=== PATIENT | female | born 1985 | race Caucasian/White ===

== ENCOUNTER 2019-09-14 08:30 | Emergency (ER) | payer OTHER | END 2019-09-14 09:06 | disposition home or self-care (01) | LOC: BURERS 08:30 | DX: K04.7 Periapical abscess without sinus (principal); J44.9 Chronic obstructive pulmonary disease, unspecified; I10 Essential (primary) hypertension; E11.9 Type 2 diabetes mellitus without complications; J45.909 Unspecified asthma, uncomplicated; F41.9 Anxiety disorder, unspecified; F31.9 Bipolar disorder, unspecified; F17.210 Nicotine dependence, cigarettes, uncomplicated; Z79.899 Other long term (current) drug therapy; Z79.4 Long term (current) use of insulin | CPT/HCPCS: 99282 ==

== ENCOUNTER 2019-10-08 14:56 | Emergency (ER) | payer OTHER ==
[2019-10-08] MEDS ORDERED: Morphine 4 MG/ML VIAL ONE (15:16)
[2019-10-08] MEDS ORDERED: Lidocaine 2% w/ Epi 1:200K 10 ML VIAL ONE (15:17)
== END 2019-10-08 16:00 | disposition home or self-care (01) ==
LOC: BURERS 14:56
DX: K61.0 Anal abscess (principal); Z79.899 Other long term (current) drug therapy; Z79.4 Long term (current) use of insulin; Z79.891 Long term (current) use of opiate analgesic
CPT/HCPCS: 46050; 96372; J2270

== ENCOUNTER 2019-10-13 18:06 | Emergency (ER) | payer OTHER ==
[2019-10-13] MEDS ORDERED: predniSONE 20 MG TAB ONE (18:28)
== END 2019-10-13 18:45 | disposition home or self-care (01) ==
LOC: BURERS 18:06
DX: J11.1 Influenza due to unidentified influenza virus with other respiratory manifestations (principal); J44.1 Chronic obstructive pulmonary disease with (acute) exacerbation; E11.9 Type 2 diabetes mellitus without complications; I10 Essential (primary) hypertension; F41.9 Anxiety disorder, unspecified; F31.9 Bipolar disorder, unspecified; F17.210 Nicotine dependence, cigarettes, uncomplicated
CPT/HCPCS: 94640; J7512; J7620

== ENCOUNTER 2019-10-16 10:07 | Emergency (ER) | payer OTHER ==
--- NOTE | 2019-10-16 10:47 | RAD ---
EXAM: Single view of the chest HISTORY: Cough and congestion COMPARISON: 07/12/2019 FINDINGS: Single view of the chest shows a normal sized cardiomediastinal silhouette. There is no xochitl dence of consolidation, mass, or pleural effusion. The bones are unremarkable. IMPRESSION: No evidence of acute cardiopulmonary disease
[2019-10-16] MEDS ORDERED: predniSONE 20 MG TAB ONE (11:08)
[2019-10-16 11:14] LABS: Hemoglobin 17.2 g/dL (12.0-16.0); Mean Corpuscular Hemoglobin 32.2 pg (27.0-31.0); Mean Corpuscular Volume 94.9 fL (78.0-98.0); Red Blood Cell (RBC) Count 5.35 mill/uL (4.20-5.40); White Blood Cell (WBC) Count 10.6 thou/uL (4.8-10.8)
[2019-10-16 11:15] LABS: #Basophils 0.1 thou/uL (0.0-0.2); #Eosinphils 0.2 thou/uL (0.0-0.7); #Monocytes 0.8 thou/uL (0.11-0.59); #Neutrophils 6.8 thou/uL (1.40-6.50); %Eosinophils 1.6 % (0.0-10.0); %Lymphocytes 26.6 % (21.0-51.0); %Neutrophils 63.8 % (42.0-75.0); MDiff Complete? YES; Manual Diff?? NO; Mean Corpuscular HGB CONC 33.9 g/dL (32.0-36.0); Platelet Count 192 thou/uL (130-400); RBC Distribution Width 11.7 % (11.5-14.5)
[2019-10-16] MEDS ORDERED: Azithromycin 250 MG TAB ONE (11:16)
[2019-10-16 11:25] LABS: ALT (SGPT) 30 U/L (8-55); AST (SGOT) 23 U/L (5-34); Albumin 3.8 g/dL (3.5-5.0); Alkaline Phosphatase 56 U/L (40-110); Anion Gap 18 mmol/L (10-20); BUN (Urea Nitrogen) 13 mg/dL (7.0-18.7); Bilirubin, Total 0.4 mg/dL (0.2-1.2); Calc. Creatinine Clearance 0 mL/min (70-130); Calcium 9.2 mg/dL (7.8-10.44); Carbon Dioxide 26 mmol/L (22-29); Chloride 96 mmol/L (98-107); Estimated GFR-MDRD Greater than 90; Globulin 3.7 g/dL (2.4-3.5); Glucose 283 mg/dL (70-105); Potassium 4.1 mmol/L (3.5-5.1); Protein, Total 7.5 g/dL (6.0-8.3); Sodium 136 mmol/L (136-145)
[2019-10-17 03:54] LABS: #Lymphocytes 2.8 thou/uL (1.20-3.40)
== END 2019-10-16 11:46 | disposition home or self-care (01) ==
LOC: BURERS 10:07
DX: J44.1 Chronic obstructive pulmonary disease with (acute) exacerbation (principal); J06.9 Acute upper respiratory infection, unspecified; E11.9 Type 2 diabetes mellitus without complications; F41.9 Anxiety disorder, unspecified; F31.9 Bipolar disorder, unspecified; F17.210 Nicotine dependence, cigarettes, uncomplicated; Z79.899 Other long term (current) drug therapy
CPT/HCPCS: 36415; 71045; 80053; 83880; 84484; 85025; 93005; J7512; J7620

== ENCOUNTER 2019-10-18 07:33 | Inpatient (IN) | payer OTHER ==
[2019-10-18] MEDS ORDERED: methylPREDNISolone Sod Succ/PF 125 MG/2 ML VIAL ONE (08:02)
[2019-10-18 08:21] LABS: #Basophils 0.1 thou/uL (0.0-0.2); #Eosinphils 0.1 thou/uL (0.0-0.7); #Lymphocytes 3.4 thou/uL (1.20-3.40); #Monocytes 0.8 thou/uL (0.11-0.59); #Neutrophils 8.5 thou/uL (1.40-6.50); %Basophils 0.9 % (0.0-1.0); %Eosinophils 0.7 % (0.0-10.0); %Lymphocytes 26.4 % (21.0-51.0); %Monocytes 6.5 % (0.0-10.0); %Neutrophils 65.5 % (42.0-75.0); Hemoglobin 17.1 g/dL (12.0-16.0); Mean Corpuscular HGB CONC 33.3 g/dL (32.0-36.0); Mean Corpuscular Hemoglobin 31.8 pg (27.0-31.0); Mean Corpuscular Volume 95.6 fL (78.0-98.0); Mean Platelet Volume 7.9 fL (7.4-10.4); Platelet Count 200 thou/uL (130-400); RBC Distribution Width 12.1 % (11.5-14.5); Red Blood Cell (RBC) Count 5.38 mill/uL (4.20-5.40); White Blood Cell (WBC) Count 12.9 thou/uL (4.8-10.8)
[2019-10-18 08:33] LABS: ALT (SGPT) 31 U/L (8-55); AST (SGOT) 14 U/L (5-34); Albumin 3.9 g/dL (3.5-5.0); Alkaline Phosphatase 52 U/L (40-110); Anion Gap 19 mmol/L (10-20); BUN (Urea Nitrogen) 15 mg/dL (7.0-18.7); Bilirubin, Total 0.5 mg/dL (0.2-1.2); Calc. Creatinine Clearance 0 mL/min (70-130); Calcium 8.9 mg/dL (7.8-10.44); Carbon Dioxide 25 mmol/L (22-29); Chloride 96 mmol/L (98-107); Estimated GFR-MDRD 79; Globulin 3.8 g/dL (2.4-3.5); Glucose 409 mg/dL (70-105); Potassium 3.9 mmol/L (3.5-5.1); Protein, Total 7.7 g/dL (6.0-8.3); Sodium 136 mmol/L (136-145)
[2019-10-18] MEDS ORDERED: Aztreonam 2 GM in Sodium Chloride 0.9% 100 ML IVPB SCH (08:45)
--- NOTE | 2019-10-18 09:13 | RAD ---
PA AND LATERAL CHEST: HISTORY: Cough. Shortness of breath. COMPARISON: 10/16/2019 FINDINGS: The heart size is normal. No focal areas of consolidation, pneumothoraces or pleural effusions are se en. IMPRESSION: No acute process. POS: [facility]
[2019-10-18] MEDS ORDERED: Albuterol Sulfate 1.25 MG/3 ML NEB ONE (10:42)
[2019-10-18 11:28] LABS: Lactic Acid 2.9 mmol/L (0.5-2.2)
[2019-10-18 12:06] VITALS: BMI 41.8
[2019-10-18] MEDS ORDERED: Ventolin HFA Inhaler 60 PUFF INHALER INH PRN (12:51)
[2019-10-18] MEDS ORDERED: Ibuprofen 800 MG TAB PO PRN (12:51)
[2019-10-18] MEDS ORDERED: Ondansetron ODT 4 MG TAB PO PRN (12:51)
[2019-10-18] MEDS ORDERED: Dextrose 50% Abboject 50 ML SYRINGE SLOW IVP PRN (12:53)
[2019-10-18] MEDS ORDERED: Dextrose 5% in Water 1,000 ML IV PRN (12:53)
[2019-10-18] MEDS ORDERED: Paliperidone Palmitate [Invega Sustenna] 234 MG IM SCH (13:15)
[2019-10-18] MEDS: Metoclopramide HCl 10 MG TAB PO SCH ×3 (14:27→20:58)
[2019-10-18] MEDS ORDERED: Nicotine 21 MG PATCH TD SCH (14:30)
[2019-10-18] MEDS: HumaLOG 300 UNITS/3 ML VIAL SC PRN ×2 (18:13→22:47)
[2019-10-18] MEDS: Mometasone/Formoterol 60 PUFF AER INH SCH (18:14)
--- NOTE | 2019-10-18 20:19 | HP ---
CHIEF COMPLAINT: Dyspnea. HISTORY OF PRESENT ILLNESS: A 34-year-old female, chronic smoker with underlying COPD, presented to the [facility] Emergency Department with worsening upper respiratory symptoms including cough and shortness of breath over the last couple weeks. She has been evaluated over this timeframe on more than one occasion in the emergency department and has been prescribed Tessalon Perles, promethazine with codeine cough syrup, prednisone, and azithromycin; however, she has not improved. The patient has been previously prescribed a controller medication of Symbicort, however, she does admit that she did not have this at home. She states she has most recently been seen at the [facility] by Manolo Blood. However, she has moved to this area recently. In the emergency department, the patient was noted to have leukocytosis with chest x-ray concerning for a basilar pneumonia. Her vital signs revealed mild tachypnea, tachycardia, and hypoxia. Secondary to her clinical findings, she is being admitted for a COPD exacerbation with concern for pneumonia and noted hypoxia. In the emergency department, she did receive aztreonam, Levaquin, albuterol nebs, and Solu-Medrol. PAST MEDICAL HISTORY: Include diabetes mellitus, gastroparesis, hypertension, anxiety, depression, bipolar disorder, and COPD. PAST SURGICAL HISTORY: Includes tonsillectomy, colposcopy, and multiple I and D 's for the hidradenitis. FAMILY HISTORY: Congestive heart failure and diabetes in grandmother and breast cancer in paternal grandmother, and melanoma in a paternal uncle. SOCIAL HISTORY: Current smoker between 1 and 2 packs per day for 15+ years, and frequent ETOH. Denies drug use. ALLERGIES: INCLUDE PENICILLIN AND ZOSYN. CURRENT MEDICATIONS: 1. Metoprolol succinate 50 mg daily. 2. Proventil inhaler 2 puffs q.4 hours p.r.n. 3. Ibuprofen 800 mg b.i.d. p.r.n. 4. Aspirin 81 mg daily. 5. Fenofibrate 145 mg at bedtime. 6. Atorvastatin 80 mg at bedtime. 7. Levemir 85 units b.i.d. 8. DuoNeb 3 mL nebs q.i.d. p.r.n. 9. Metoclopramide 10 mg q.i.d. 10. Lisinopril 10 mg daily. 11. Oxcarbazepine 600 mg b.i.d. 12. Invega 234 mg intramuscular once a month. 13. Zofran 8 mg q.6 hours p.r.n. 14. Seroquel 400 mg at bedtime. 15. Zoloft 50 mg daily. REVIEW OF SYSTEMS: GENERAL: The patient complains of fatigue. She denies any complains of sore throat, nasal drainage, or congestion. CARDIOVASCULAR: Denies chest pain. RESPIRATORY: Complains of shortness of breath and cough. GASTROINTESTINAL: Denies abdominal pain, nausea, vomiting, diarrhea, or constipation. GENITOURINARY: Denies dysuria. MUSCULOSKELETAL: Denies joint swelling. DERMATOLOGIC: Denies rash. NEUROLOGIC: Denies headache. LABORATORY DATA: White blood cell count 12.9, hemoglobin 17.1, hematocrit 51.5 , and platelets of 200. Sodium 136, potassium 3.9, BUN 15, creatinine is 0.83 with a GFR of 79, and glucose was 409. Initial lactic acid 5.5, repeat was 2.9; AST 14; and ALT 31. Imaging on 10/18/2019, chest x-ray showed no acute process. PHYSICAL EXAMINATION: VITAL SIGNS: Temperature is 98.6, pulse is 109, respiratory rate is 22, and oxygen 91% on 2 L. GENERAL: The patient is alert and oriented, in no acute distress. She is obese with noted hirsutism. HEAD, EYES, EARS, NOSE, AND THROAT: Normocephalic and atraumatic. Extraocular muscles are intact bilaterally. Pupils are equal, round, and reactive to light. Moist mucous membrane. NECK: Supple without lymphadenopathy. CARDIOVASCULAR: Normal S1 and S2 with tachycardia. No murmurs. RESPIRATORY: Scattered rhonchi and wheezes throughout all lung massey. Nasal cannula is in place. ABDOMEN: Soft and nontender to palpation. No masses. EXTREMITIES: No clubbing, cyanosis, or edema. NEUROLOGIC: Nonfocal with cranial nerves 2 through 12 grossly intact. ASSESSMENT AND PLAN: 1. Chronic obstructive pulmonary disease exacerbation. 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 She will be restarted on her controller medication, which will be Dulera here. She is to have scheduled nebulized treatments and Solu-Medrol IV. She is currently on 2 L of supplemental oxygen. We will resume this and wean as tolerated with a goal to keep sats greater than 92%. 2. Community-acquired pneumonia. The patient will be resumed on Levaquin. Initial CBC did show leukocytosis. We will repeat her CBC, although this is likely to remain elevated secondary to her receiving steroid therapy. 3. Chronic smoker. The patient has been counseled on smoking cessation. We will provide her with a nicotine patch. 4. Insulin-dependent diabetes mellitus. We will resume Levemir dosing with a mealtime sliding scale Humalog with before meals and bedtime glucose checks. 5. Hypertension. Blood pressure is currently stable. We will resume her usual medications for this. 6. Dyslipidemia. Resume statin therapy. 7. Bipolar disorder. We will resume the patient's psych medications. 8. Prophylaxis. We will provide Lovenox for deep venous thrombosis prophylaxis and famotidine for gastrointestinal prophylaxis. CODE STATUS: Full. DISPOSITION: Anticipate minimum 48 hours admission with plan for followup cultures and final discharge home when the patient is able to return back to baseline respiratory status without the need for supplemental oxygen. Job ID: [id number] [facility]
[2019-10-18] MEDS: methylPREDNISolone Sod Succ/PF 125 MG/2 ML VIAL IVP SCH (20:57)
[2019-10-18] MEDS: Lantus 1000 UNITS/10 ML VIAL SC SCH (20:58)
[2019-10-18] MEDS: Famotidine 20 MG TAB PO SCH (20:59)
[2019-10-18] MEDS: OXcarbazepine 150 MG TAB PO SCH (20:59)
[2019-10-18] MEDS ORDERED: OXcarbazepine 300 MG TAB PO SCH (21:00)
[2019-10-18] MEDS ORDERED: Oxcarbazepine [Trileptal] 600 MG PO SCH (21:00)
[2019-10-18] MEDS ORDERED: Atorvastatin Calcium 40 MG TAB PO SCH (21:00)
[2019-10-19] MEDS: methylPREDNISolone Sod Succ/PF 125 MG/2 ML VIAL IVP SCH ×3 (02:13→13:15)
[2019-10-19 04:06] LABS: #Lymphocytes 1.6 thou/uL (1.20-3.40); #Monocytes 0.4 thou/uL (0.11-0.59); %Basophils 0.3 % (0.0-1.0); %Lymphocytes 13.2 % (21.0-51.0); %Neutrophils 83.5 % (42.0-75.0); Mean Corpuscular HGB CONC 34.7 g/dL (32.0-36.0); Mean Corpuscular Hemoglobin 32.4 pg (27.0-31.0); Mean Corpuscular Volume 93.2 fL (78.0-98.0); Platelet Count 191 thou/uL (130-400); RBC Distribution Width 11.9 % (11.5-14.5); Red Blood Cell (RBC) Count 4.94 mill/uL (4.20-5.40); White Blood Cell (WBC) Count 11.9 thou/uL (4.8-10.8)
[2019-10-19 04:21] LABS: ALT (SGPT) 30 U/L (8-55); AST (SGOT) 10 U/L (5-34); Albumin 3.8 g/dL (3.5-5.0); Alkaline Phosphatase 54 U/L (40-110); Anion Gap 16 mmol/L (10-20); BUN (Urea Nitrogen) 15 mg/dL (7.0-18.7); Bilirubin, Total 0.5 mg/dL (0.2-1.2); Calc. Creatinine Clearance 202 mL/min (70-130); Calcium 9.1 mg/dL (7.8-10.44); Carbon Dioxide 26 mmol/L (22-29); Chloride 98 mmol/L (98-107); Estimated GFR-MDRD 85; Globulin 3.6 g/dL (2.4-3.5); Glucose 369 mg/dL (70-105); Potassium 4.5 mmol/L (3.5-5.1); Protein, Total 7.4 g/dL (6.0-8.3); Sodium 135 mmol/L (136-145)
[2019-10-19] MEDS: Mometasone/Formoterol 60 PUFF AER INH SCH (06:19)
[2019-10-19] MEDS: Metoclopramide HCl 10 MG TAB PO SCH ×2 (08:52→13:12)
[2019-10-19] MEDS: Famotidine 20 MG TAB PO SCH (08:52)
[2019-10-19] MEDS: OXcarbazepine 150 MG TAB PO SCH (08:54)
[2019-10-19] MEDS: Lantus 1000 UNITS/10 ML VIAL SC SCH (08:57)
[2019-10-19] MEDS: HumaLOG 300 UNITS/3 ML VIAL SC PRN ×2 (09:00→13:10)
[2019-10-19] MEDS ORDERED: Fenofibrate Nanocrystallized 145 MG TAB PO SCH (09:00)
[2019-10-19] MEDS ORDERED: Enoxaparin Sodium 40 MG/0.4 ML SYRINGE SC SCH (09:00)
[2019-10-19] MEDS ORDERED: Aspirin 81 mg Enteric Coated Tablet PO SCH (09:00)
[2019-10-19] MEDS ORDERED: Nicotine 21 MG PATCH TD SCH (09:00)
[2019-10-19] MEDS ORDERED: Lisinopril 10 MG TAB PO SCH (09:00)
[2019-10-19 13:20] VITALS: BP 124/74; TEMP 98.3
--- NOTE | 2019-10-20 09:51 | DIS ---
DATE OF ADMISSION: 10/18/2019 DATE OF DISCHARGE: 10/19/2019 ADMISSION DIAGNOSES: Chronic obstructive pulmonary disease exacerbation, community-acquired pneumonia, chronic smoker, insulin-dependent diabetes mellitus, hypertension, dyslipidemia, and bipolar disorder. PROCEDURES: 10/18/2019, chest x-ray shows no acute process. HOSPITAL COURSE: This is a 34-year-old female, chronic smoker, with underlying COPD, for which she is not typically oxygen-dependent, presented to the [facility] Emergency Department with dyspnea, tachypnea and URI symptoms, that have not improved with recent prescription of cough medication, oral prednisone and azithromycin. The patient was notably hypoxic and had leukocytosis upon initial workup, prompting her admission for further treatment for COPD exacerbation and concern for pneumonia. The patient received IV Levaquin, scheduled nebulized treatments, and IV Solu-Medrol during her stay. Her respiratory status did improve; however, she had not yet weaned back to room air prior to deciding to leave against medical advice. Of note, the patient had not been using her controller medication Symbicort at home and she left her room to smoke multiple times during her stay. She was counseled on smoking cessation and provided nicotine patches during her stay. DISPOSITION: The patient has left against medical advice and discharged home. DISCHARGE MEDICATIONS: The patient is to resume her usual meds, which include, 1. Metoprolol succinate 50 mg daily. 2. Proventil inhaler 2 puffs q.4 hours p.r.n. 3. Ibuprofen 800 mg b.i.d. p.r.n. 4. Aspirin 81 mg daily. 5. Fenofibrate 145 mg at bedtime. 6. Atorvastatin 80 mg at bedtime. 7. Levemir 85 units b.i.d. 8. DuoNeb 3 mL nebs q.i.d. p.r.n. 9. Metoclopramide 10 mg q.i.d. 10. Lisinopril 10 mg daily. 11. Oxcarbazepine 600 mg b.i.d. 12. Invega 234 mg intramuscular once a month. 13. Zofran 8 mg q.6 hours p.r.n. 14. Seroquel 400 mg at bedtime. 15. Zoloft 50 mg daily. Job ID: [id number] [facility]
--- NOTE | 2019-10-21 05:00 | PQF ---
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 Clinical indicators are provided on the bottom of this form for your review Please check appropriate box(s): [ x ] Acute Respiratory Failure: [ x ] with Hypoxia[ ] with Hypercapnia [ ] Acute On Chronic Respiratory Failure: [ ] with Hypoxia [ ] with Hypercapnia [ ] Acute Respiratory Failure due to: (etiology) [ ] ARDS (Acute Respiratory Distress Syndrome) [ ] Chronic Respiratory Failure only [ ] with Hypoxia [ ] with Hypercapnia [ ] Hypoxia [ ] Other diagnosis [ ] Unable to determine In addition, please specify: Present on Admission (POA): [x ] Yes [ ] No [ ] Unable to determine For continuity of documentation, please document condition throughout progress notes and discharge summary. Thank You. CLINICAL INDICATORS - SIGNS / SYMPTOMS / LABS O2 saturation 86% on Room Air - Documented in ED report pg#[id number] Respiration Rate 22on 10/18 - Documented in Vital Signs Worsening Cough, SOB over the last couple of weeks - Documented in H&P on 10/18 by RICKEY SHAVER Hypoxia - Documented in H&P on 10/18 by RICKEY SHAVER RISK FACTORS COPD Exacerbation - Documented in H&P on 10/18 by RICKEY SHAVER Chronic CHF - Documented in H&P on 10/18 by RICKEY SHAVER Chronic smoker - Documented in H&P on 10/18 by RICKEY SHAVER Community acquired Pneumonia - Documented in H&P on 10/18 by RICKEY SHAVER TREATMENTS: O2 delivery Nasal Cannula - Documented in Vital Signs Received aztreonam albuterol nebs, Solu-Medrol in ED - Documented in H&P on by RICKEY SHAVER [employer] Relief Operator [employer] Winform Viewer (This form is maintained as a part of the permanent medical record) 2014 [employer]. All Rights Reserved [email or web address] [not provided] [email or web address]
== END 2019-10-19 15:50 | disposition left against medical advice (07) | DRG 193 ==
LOC: BURERS 07:33 → BURMED 08:42
PROVIDERS: ADMIT Family Medicine; ATTEND Family Medicine
DX: J18.9 Pneumonia, unspecified organism (principal); J96.01 Acute respiratory failure with hypoxia; J44.1 Chronic obstructive pulmonary disease with (acute) exacerbation; J44.0 Chronic obstructive pulmonary disease with (acute) lower respiratory infection; F31.9 Bipolar disorder, unspecified; F41.9 Anxiety disorder, unspecified; I10 Essential (primary) hypertension; Z90.89 Acquired absence of other organs; F17.210 Nicotine dependence, cigarettes, uncomplicated; Z79.82 Long term (current) use of aspirin; Z79.4 Long term (current) use of insulin; E78.5 Hyperlipidemia, unspecified; D72.829 Elevated white blood cell count, unspecified; E11.43 Type 2 diabetes mellitus with diabetic autonomic (poly)neuropathy; K31.84 Gastroparesis
CPT/HCPCS: 36415; 36416; 71046; 80053; 83605; 85025; 85379; 87040; 87804; 93005; 94640; 96365; 96366; 96375; J1650; J1815; J1956; J2930; J3490; J7620

== ENCOUNTER 2019-11-07 16:21 | Emergency (ER) | payer OTHER ==
[2019-11-07] MEDS ORDERED: Promethazine HCl 25 MG/ML VIAL ONE (16:44)
[2019-11-07] MEDS ORDERED: Metoclopramide HCl 10 MG/2 ML VIAL ONE (16:44)
[2019-11-07 16:54] LABS: #Basophils 0.1 thou/uL (0.0-0.2); #Eosinphils 0.1 thou/uL (0.0-0.7); #Lymphocytes 2.1 thou/uL (1.20-3.40); #Monocytes 0.5 thou/uL (0.11-0.59); #Neutrophils 9.1 thou/uL (1.40-6.50); %Basophils 0.8 % (0.0-1.0); %Eosinophils 0.7 % (0.0-10.0); %Lymphocytes 17.5 % (21.0-51.0); Hemoglobin 18.5 g/dL (12.0-16.0); Mean Corpuscular HGB CONC 33.9 g/dL (32.0-36.0); Mean Corpuscular Hemoglobin 32.1 pg (27.0-31.0); Mean Corpuscular Volume 94.6 fL (78.0-98.0); Mean Platelet Volume 7.6 fL (7.4-10.4); Platelet Count 220 thou/uL (130-400); RBC Distribution Width 12.3 % (11.5-14.5); Red Blood Cell (RBC) Count 5.78 mill/uL (4.20-5.40); White Blood Cell (WBC) Count 11.8 thou/uL (4.8-10.8)
[2019-11-07 17:00] LABS: BHCG - Serum Negative (NEGATIVE); Pregs Control Background? CLEAR/WHITE (CLR/WHITE); Pregs Control Bar Appear? YES (CONTROL BAR)
[2019-11-07 17:11] LABS: ALT (SGPT) 48 U/L (8-55); AST (SGOT) 25 U/L (5-34); Albumin 4.1 g/dL (3.5-5.0); Alkaline Phosphatase 57 U/L (40-110); Anion Gap 19 mmol/L (10-20); BUN (Urea Nitrogen) 11 mg/dL (7.0-18.7); Bilirubin, Total 0.8 mg/dL (0.2-1.2); Calc. Creatinine Clearance 0 mL/min (70-130); Calcium 9.7 mg/dL (7.8-10.44); Carbon Dioxide 29 mmol/L (22-29); Chloride 95 mmol/L (98-107); Estimated GFR-MDRD 74; Globulin 3.6 g/dL (2.4-3.5); Glucose 355 mg/dL (70-105); Lipase 28 U/L (8-78); Potassium 3.9 mmol/L (3.5-5.1); Protein, Total 7.7 g/dL (6.0-8.3); Sodium 139 mmol/L (136-145)
== END 2019-11-07 17:47 | disposition home or self-care (01) ==
LOC: BURERS 16:21
DX: E11.43 Type 2 diabetes mellitus with diabetic autonomic (poly)neuropathy (principal); K31.84 Gastroparesis; E11.65 Type 2 diabetes mellitus with hyperglycemia; J44.9 Chronic obstructive pulmonary disease, unspecified; E66.01 Morbid (severe) obesity due to excess calories; I10 Essential (primary) hypertension; F41.9 Anxiety disorder, unspecified; F31.9 Bipolar disorder, unspecified; F17.210 Nicotine dependence, cigarettes, uncomplicated
CPT/HCPCS: 80053; 83690; 84703; 85025; 96374; 96375; J2550; J2765

== ENCOUNTER 2019-11-08 11:29 | Emergency (ER) | payer OTHER ==
[2019-11-08] MEDS ORDERED: Promethazine HCl 25 MG/ML VIAL ONE (12:21)
[2019-11-08] MEDS ORDERED: Pantoprazole 40 MG VIAL ONE (12:21)
[2019-11-08 12:31] LABS: Anion Gap 17 mmol/L (10-20); BUN (Urea Nitrogen) 11 mg/dL (7.0-18.7); Calc. Creatinine Clearance 0 mL/min (70-130); Calcium 9.5 mg/dL (7.8-10.44); Carbon Dioxide 32 mmol/L (22-29); Chloride 95 mmol/L (98-107); Estimated GFR-MDRD 81; Glucose 373 mg/dL (70-105); Potassium 3.5 mmol/L (3.5-5.1); Sodium 140 mmol/L (136-145)
== END 2019-11-08 13:00 | disposition home or self-care (01) ==
LOC: BURERS 11:29
DX: E11.43 Type 2 diabetes mellitus with diabetic autonomic (poly)neuropathy (principal); K31.84 Gastroparesis; I10 Essential (primary) hypertension; J44.9 Chronic obstructive pulmonary disease, unspecified; F41.9 Anxiety disorder, unspecified; F31.9 Bipolar disorder, unspecified; F17.210 Nicotine dependence, cigarettes, uncomplicated
CPT/HCPCS: 80048; 96365; 96375; C9113; J2550

== ENCOUNTER 2019-11-09 12:56 | Emergency (ER) | payer OTHER ==
[2019-11-09] MEDS ORDERED: Famotidine In NaCl 20 mg/50 ml Premix Bag ONE (13:24)
[2019-11-09] MEDS ORDERED: Ondansetron PF 4 MG/2 ML Vial ONE (13:24)
[2019-11-09 13:41] LABS: #Basophils 0.1 thou/uL (0.0-0.2); #Lymphocytes 2.7 thou/uL (1.20-3.40); #Monocytes 0.5 thou/uL (0.11-0.59); #Neutrophils 7.4 thou/uL (1.40-6.50); %Basophils 1.1 % (0.0-1.0); %Eosinophils 0.4 % (0.0-10.0); %Lymphocytes 25.5 % (21.0-51.0); %Monocytes 4.7 % (0.0-10.0); %Neutrophils 68.3 % (42.0-75.0); Hemoglobin 16.6 g/dL (12.0-16.0); Mean Corpuscular HGB CONC 33.5 g/dL (32.0-36.0); Mean Corpuscular Hemoglobin 32.2 pg (27.0-31.0); Mean Platelet Volume 7.2 fL (7.4-10.4); Platelet Count 213 thou/uL (130-400); RBC Distribution Width 11.9 % (11.5-14.5); Red Blood Cell (RBC) Count 5.16 mill/uL (4.20-5.40); White Blood Cell (WBC) Count 10.8 thou/uL (4.8-10.8)
[2019-11-09 13:55] LABS: ALT (SGPT) 30 U/L (8-55); AST (SGOT) 15 U/L (5-34); Albumin 3.8 g/dL (3.5-5.0); Alkaline Phosphatase 47 U/L (40-110); Anion Gap 16 mmol/L (10-20); BUN (Urea Nitrogen) 10 mg/dL (7.0-18.7); Bilirubin, Total 0.7 mg/dL (0.2-1.2); Calc. Creatinine Clearance 0 mL/min (70-130); Calcium 8.9 mg/dL (7.8-10.44); Carbon Dioxide 28 mmol/L (22-29); Chloride 100 mmol/L (98-107); Estimated GFR-MDRD 88; Globulin 3.3 g/dL (2.4-3.5); Glucose 282 mg/dL (70-105); Lipase 23 U/L (8-78); Potassium 3.7 mmol/L (3.5-5.1); Protein, Total 7.1 g/dL (6.0-8.3); Sodium 140 mmol/L (136-145)
[2019-11-09 14:09] LABS: Bilirubin Moderate (Negative); Blood, Urine Trace (Negative); Clarity Cloudy (Clear); Glucose, Urine (Dipstick) Negative (Negative); Leukocyte Negative (Negative); Nitrite Negative (Negative); Protein, Urine (Dipstick) 100 mg/dL (Neg-Trace)
[2019-11-09 14:12] LABS: Bacteria/HPF 4+ HPF (None Seen); RBC/HPF 0-3 HPF (0-3); Squamous Epithelial 0-3 HPF (0-3); WBC/HPF 0-3 HPF (0-3)
== END 2019-11-09 14:10 | disposition home or self-care (01) ==
LOC: BURERS 12:56
DX: E11.43 Type 2 diabetes mellitus with diabetic autonomic (poly)neuropathy (principal); K31.84 Gastroparesis; J44.9 Chronic obstructive pulmonary disease, unspecified; I10 Essential (primary) hypertension; F41.9 Anxiety disorder, unspecified; F31.9 Bipolar disorder, unspecified; F17.210 Nicotine dependence, cigarettes, uncomplicated
CPT/HCPCS: 80053; 81003; 81015; 83690; 85025; 96365; 96375; J2405

== ENCOUNTER 2019-11-29 08:55 | Outpatient (CLI) | payer OTHER ==
--- NOTE | 2019-11-29 12:11 | RAD ---
CHEST: Date: 11/29/2019 PA and lateral views show a normal sized heart. No lobar infiltrate or effusion seen. At most, some o f the perihilar markings may be mildly prominent, but this is an equivocal finding at best. There is no vascular congestion, edema, or pleural effusion. IMPRESSION: No definite acute findings. At most, minor perihilar prominence. POS: HOME
== END 2019-11-29 08:56 | disposition home or self-care (01) ==
LOC: BURRAD 08:55
PROVIDERS: ATTEND Physician Assistant
DX: J40 Bronchitis, not specified as acute or chronic (principal); R91.8 Other nonspecific abnormal finding of lung field
CPT/HCPCS: 71046

== ENCOUNTER 2019-12-01 08:18 | Emergency (ER) | payer OTHER ==
[2019-12-01] MEDS ORDERED: Cephalexin 250 MG CAP ONE (08:49)
[2019-12-01] MEDS ORDERED: Sulfameth/Trimethoprim DS 800-160mg TAB ONE (08:49)
== END 2019-12-01 08:53 | disposition home or self-care (01) ==
LOC: BURERS 08:18
DX: N76.4 Abscess of vulva (principal); E11.9 Type 2 diabetes mellitus without complications; I10 Essential (primary) hypertension; J44.9 Chronic obstructive pulmonary disease, unspecified; K50.90 Crohn's disease, unspecified, without complications; F41.9 Anxiety disorder, unspecified; F31.9 Bipolar disorder, unspecified; F17.210 Nicotine dependence, cigarettes, uncomplicated
CPT/HCPCS: 99282

== ENCOUNTER 2019-12-08 13:54 | Emergency (ER) | payer OTHER | END 2019-12-08 14:04 | disposition home or self-care (01) | LOC: BURERS 13:54 | DX: L02.416 Cutaneous abscess of left lower limb (principal); E11.9 Type 2 diabetes mellitus without complications; I10 Essential (primary) hypertension; J45.909 Unspecified asthma, uncomplicated; J44.9 Chronic obstructive pulmonary disease, unspecified; F41.9 Anxiety disorder, unspecified; F31.9 Bipolar disorder, unspecified; F17.210 Nicotine dependence, cigarettes, uncomplicated; Z79.899 Other long term (current) drug therapy | CPT/HCPCS: 10060 ==

== ENCOUNTER 2019-12-15 13:39 | Emergency (ER) | payer OTHER | END 2019-12-15 14:03 | disposition home or self-care (01) | LOC: BURERS 13:39 | DX: K02.9 Dental caries, unspecified (principal); E11.9 Type 2 diabetes mellitus without complications; J44.9 Chronic obstructive pulmonary disease, unspecified; F41.9 Anxiety disorder, unspecified; F31.9 Bipolar disorder, unspecified; F17.210 Nicotine dependence, cigarettes, uncomplicated; I10 Essential (primary) hypertension; K50.90 Crohn's disease, unspecified, without complications; Z71.6 Tobacco abuse counseling | CPT/HCPCS: 99406 ==

== ENCOUNTER 2019-12-22 03:50 | Emergency (ER) | payer OTHER ==
[2019-12-22] MEDS ORDERED: Ondansetron PF 4 MG/2 ML Vial ONE ×2 (04:16→04:48)
[2019-12-22 04:25] LABS: #Lymphocytes 1.8 thou/uL (1.20-3.40); #Monocytes 0.4 thou/uL (0.11-0.59); #Neutrophils 12.4 thou/uL (1.40-6.50); %Basophils 0.3 % (0.0-1.0); %Eosinophils 0.2 % (0.0-10.0); %Lymphocytes 12.4 % (21.0-51.0); %Monocytes 2.6 % (0.0-10.0); %Neutrophils 84.6 % (42.0-75.0); Hemoglobin 17.3 g/dL (12.0-16.0); Mean Corpuscular HGB CONC 34.5 g/dL (32.0-36.0); Mean Corpuscular Hemoglobin 31.5 pg (27.0-31.0); Mean Corpuscular Volume 91.2 fL (78.0-98.0); Mean Platelet Volume 8.5 fL (7.4-10.4); Platelet Count 236 thou/uL (130-400); RBC Distribution Width 12.4 % (11.5-14.5); White Blood Cell (WBC) Count 14.6 thou/uL (4.8-10.8)
[2019-12-22 04:38] LABS: ALT (SGPT) 29 U/L (8-55); AST (SGOT) 14 U/L (5-34); Albumin 4.2 g/dL (3.5-5.0); Alkaline Phosphatase 62 U/L (40-110); Anion Gap 19 mmol/L (10-20); BUN (Urea Nitrogen) 12 mg/dL (7.0-18.7); Calc. Creatinine Clearance 0 mL/min (70-130); Calcium 9.5 mg/dL (7.8-10.44); Carbon Dioxide 25 mmol/L (22-29); Chloride 95 mmol/L (98-107); Estimated GFR-MDRD 77; Globulin 3.8 g/dL (2.4-3.5); Glucose 416 mg/dL (70-105); Lipase 34 U/L (8-78); Sodium 135 mmol/L (136-145)
[2019-12-22 05:13] LABS: Bilirubin Moderate (Negative); Blood, Urine Trace (Negative); Clarity Hazy (Clear); Glucose, Urine (Dipstick) 500 mg/dL (Negative); Leukocyte Negative (Negative); Nitrite Negative (Negative); Protein, Urine (Dipstick) > or equal to 300 mg/dL (Neg-Trace)
[2019-12-22] MEDS ORDERED: Insulin Regular 300 UNITS/3 ML VIAL ONE (05:18)
[2019-12-22 05:25] LABS: Bacteria/HPF Rare-Few HPF (None Seen); Mucous/LPF 1+ LPF (<2+); RBC/HPF 0-3 HPF (0-3); Squamous Epithelial 0-3 HPF (0-3); WBC/HPF 0-3 HPF (0-3)
--- NOTE | 2019-12-22 06:40 | RAD ---
PORTABLE CHEST: Date: 12/22/2019 An AP portable film at 0436 hours is compared with the 11/29/2019 study. The heart is normal in size and the lungs are clear. There are no new infiltrates or effusions. Media stinum unremarkable in appearance. IMPRESSION: No acute thoracic findings. POS: HOME
== END 2019-12-22 05:42 | disposition left against medical advice (07) ==
LOC: BURERS 03:50
DX: E11.65 Type 2 diabetes mellitus with hyperglycemia (principal); J44.9 Chronic obstructive pulmonary disease, unspecified; G47.30 Sleep apnea, unspecified; R11.2 Nausea with vomiting, unspecified; F31.9 Bipolar disorder, unspecified; F41.9 Anxiety disorder, unspecified; F17.210 Nicotine dependence, cigarettes, uncomplicated; E11.9 Type 2 diabetes mellitus without complications; Z79.899 Other long term (current) drug therapy; Z79.4 Long term (current) use of insulin
CPT/HCPCS: 36416; 71045; 80053; 81003; 81015; 83690; 85025; 94640; J1815; J2405; J7620

== ENCOUNTER 2019-12-22 13:16 | Emergency (ER) | payer OTHER ==
[2019-12-22] MEDS ORDERED: Promethazine HCl 25 MG/ML VIAL ONE (13:51)
[2019-12-22] MEDS ORDERED: Sodium Chloride 0.9% 100 ML ONE (13:51)
[2019-12-22 14:11] LABS: ALT (SGPT) 25 U/L (8-55); AST (SGOT) 11 U/L (5-34); Albumin 4.1 g/dL (3.5-5.0); Alkaline Phosphatase 55 U/L (40-110); Anion Gap 16 mmol/L (10-20); BUN (Urea Nitrogen) 11 mg/dL (7.0-18.7); Calc. Creatinine Clearance 0 mL/min (70-130); Calcium 9.1 mg/dL (7.8-10.44); Carbon Dioxide 29 mmol/L (22-29); Chloride 96 mmol/L (98-107); Estimated GFR-MDRD 83; Globulin 3.6 g/dL (2.4-3.5); Glucose 317 mg/dL (70-105); Potassium 3.8 mmol/L (3.5-5.1); Protein, Total 7.7 g/dL (6.0-8.3); Sodium 137 mmol/L (136-145)
[2019-12-22 14:19] LABS: #Lymphocytes 2.4 thou/uL (1.20-3.40); #Monocytes 0.6 thou/uL (0.11-0.59); #Neutrophils 11.2 thou/uL (1.40-6.50); %Basophils 0.3 % (0.0-1.0); %Eosinophils 0.1 % (0.0-10.0); %Lymphocytes 16.8 % (21.0-51.0); %Monocytes 4.5 % (0.0-10.0); %Neutrophils 78.4 % (42.0-75.0); Hemoglobin 16.3 g/dL (12.0-16.0); Mean Corpuscular HGB CONC 35.1 g/dL (32.0-36.0); Mean Corpuscular Hemoglobin 32.1 pg (27.0-31.0); Mean Corpuscular Volume 91.5 fL (78.0-98.0); Mean Platelet Volume 7.6 fL (7.4-10.4); Platelet Count 224 thou/uL (130-400); RBC Distribution Width 12.7 % (11.5-14.5); Red Blood Cell (RBC) Count 5.06 mill/uL (4.20-5.40); White Blood Cell (WBC) Count 14.3 thou/uL (4.8-10.8)
[2019-12-22 16:04] LABS: Bilirubin Negative (Negative); Blood, Urine Trace (Negative); Clarity Slightly Cloudy (Clear); Glucose, Urine (Dipstick) Negative (Negative); Leukocyte Negative (Negative); Nitrite Negative (Negative); Protein, Urine (Dipstick) 30 mg/dL (Neg-Trace); Urobilinogen 0.2 mg/dL (Less than 2)
[2019-12-22 16:15] LABS: Bacteria/HPF Rare-Few HPF (None Seen); Broad Cast None Seen LPF (None Seen); Calcium Oxalate Crystals None Seen HPF (None Seen); Cellular Cast None Seen LPF (None Seen); Crystals/HPF None Seen HPF (Negative); Epithelial Cast None Seen LPF (None Seen); Fatty Cast None Seen LPF (None Seen); Mucous/LPF None Seen LPF (<2+); Other Casts None Seen LPF (None Seen); Oval Fat Bodies/HPF None Seen HPF (None Seen); RBC/HPF 0-3 HPF (0-3); Red Blood Cell Cast None Seen LPF (None Seen); Renal Epithelial None Seen HPF (None Seen); Sperm/HPF None Seen HPF (None Seen); Squamous Epithelial 0-3 HPF (0-3); Transitional Epithelial None Seen HPF (None Seen); Trichomonas/HPF None Seen HPF (None Seen); Triple Phosphate Crystal None Seen HPF (None Seen); Unclassified Crystals None Seen HPF (None Seen); WBC/HPF 0-3 HPF (0-3); Waxy Cast None Seen LPF (None Seen); White Blood Cell Cast None Seen LPF (None Seen); Yeast-Budding None Seen HPF (None Seen); Yeast-Hyphae None Seen HPF (None Seen)
[2019-12-22 16:54] LABS: Lactic Acid 2.3 mmol/L (0.5-2.2)
== END 2019-12-22 17:02 | disposition home or self-care (01) ==
LOC: BURERS 13:16
DX: E86.0 Dehydration (principal); R11.2 Nausea with vomiting, unspecified; E11.65 Type 2 diabetes mellitus with hyperglycemia; J44.9 Chronic obstructive pulmonary disease, unspecified; K50.90 Crohn's disease, unspecified, without complications; E11.43 Type 2 diabetes mellitus with diabetic autonomic (poly)neuropathy; K31.84 Gastroparesis; F41.9 Anxiety disorder, unspecified; G47.30 Sleep apnea, unspecified; F31.9 Bipolar disorder, unspecified; F17.210 Nicotine dependence, cigarettes, uncomplicated; Z71.6 Tobacco abuse counseling; Z79.4 Long term (current) use of insulin; Z79.899 Other long term (current) drug therapy
CPT/HCPCS: 36416; 71045; 80053; 81003; 81015; 83605; 83690; 85025; 94640; 96361; 96374; 99406; J1815; J2405; J2550; J3490; J7620

== ENCOUNTER 2020-01-06 18:32 | Emergency (ER) | payer OTHER ==
[2020-01-06] MEDS ORDERED: Promethazine HCl 25 MG/ML VIAL ONE (18:59)
== END 2020-01-06 19:05 | disposition home or self-care (01) ==
LOC: BURERS 18:32
DX: E86.0 Dehydration (principal); R11.2 Nausea with vomiting, unspecified; I10 Essential (primary) hypertension; J44.9 Chronic obstructive pulmonary disease, unspecified; E11.43 Type 2 diabetes mellitus with diabetic autonomic (poly)neuropathy; K31.84 Gastroparesis; G47.30 Sleep apnea, unspecified; F31.9 Bipolar disorder, unspecified; F41.9 Anxiety disorder, unspecified; F17.210 Nicotine dependence, cigarettes, uncomplicated; Z79.899 Other long term (current) drug therapy; Z79.4 Long term (current) use of insulin
CPT/HCPCS: 93005; 96372; J2550

== ENCOUNTER 2021-01-21 16:50 | Emergency (ER) | payer OTHER | END 2021-01-21 18:00 | disposition left against medical advice (07) | LOC: BURERS 16:50 | DX: Z53.21 Procedure and treatment not carried out due to patient leaving prior to being seen by health care provider (principal) ==

== ENCOUNTER 2021-02-25 10:09 | Emergency (ER) | payer OTHER ==
[2021-02-25] MEDS ORDERED: Bacitracin 1 PK ONE (10:20)
[2021-02-25] MEDS ORDERED: Lidocaine 2% w/Epinephrine 1:200K 20 ML VIAL ONE (10:20)
== END 2021-02-25 12:00 | disposition home or self-care (01) ==
LOC: BURERS 10:09
DX: N76.4 Abscess of vulva (principal); N76.2 Acute vulvitis; E11.9 Type 2 diabetes mellitus without complications; I10 Essential (primary) hypertension; J44.9 Chronic obstructive pulmonary disease, unspecified; G47.30 Sleep apnea, unspecified; F17.210 Nicotine dependence, cigarettes, uncomplicated
CPT/HCPCS: 56405; 93005

== ENCOUNTER 2021-03-03 07:51 | Emergency (ER) | payer MEDICAID, OTHER ==
[2021-03-03] MEDS ORDERED: methylPREDNISolone Sod Succ/PF 125 MG/2 ML VIAL ONE (08:25)
[2021-03-03 08:34] LABS: #Basophils 0.1 thou/uL (0.0-0.2); #Eosinphils 0.1 thou/uL (0.0-0.7); #Lymphocytes 3.3 thou/uL (1.20-3.40); #Monocytes 0.6 thou/uL (0.11-0.59); #Neutrophils 8.7 thou/uL (1.40-6.50); %Basophils 0.7 % (0.0-1.0); %Eosinophils 1.2 % (0.0-10.0); %Lymphocytes 25.5 % (21.0-51.0); %Monocytes 4.4 % (0.0-10.0); %Neutrophils 68.3 % (42.0-75.0); Hemoglobin 18.5 g/dL (12.0-16.0); Mean Corpuscular HGB CONC 35.3 g/dL (32.0-36.0); Mean Corpuscular Hemoglobin 33.5 pg (27.0-31.0); Mean Corpuscular Volume 94.8 fL (78.0-98.0); Mean Platelet Volume 7.6 fL (7.4-10.4); Platelet Count 239 thou/uL (130-400); RBC Distribution Width 12.6 % (11.5-14.5); Red Blood Cell (RBC) Count 5.54 mill/uL (4.20-5.40); White Blood Cell (WBC) Count 12.8 thou/uL (4.8-10.8)
[2021-03-03 08:50] LABS: BHCG - Serum Negative (NEGATIVE)
[2021-03-03 08:51] LABS: Pregs Control Background? CLEAR/WHITE (CLR/WHITE); Pregs Control Bar Appear? YES (CONTROL BAR)
[2021-03-03 08:53] LABS: ALT (SGPT) 23 U/L (8-55); AST (SGOT) 18 U/L (5-34); Albumin 3.7 g/dL (3.5-5.0); Alkaline Phosphatase 68 U/L (40-110); Anion Gap 21 mmol/L (10-20); BUN (Urea Nitrogen) 13 mg/dL (7.0-18.7); Bilirubin, Total 0.5 mg/dL (0.2-1.2); Calc. Creatinine Clearance 0 mL/min (70-130); Calcium 9.9 mg/dL (7.8-10.44); Carbon Dioxide 24 mmol/L (22-29); Chloride 97 mmol/L (98-107); Globulin 4.2 g/dL (2.4-3.5); Glucose 402 mg/dL (70-105); Lipase 45 U/L (8-78); Potassium 4.6 mmol/L (3.5-5.1); Protein, Total 7.9 g/dL (6.0-8.3); Sodium 137 mmol/L (136-145)
[2021-03-03 09:01] LABS: Base Excess-Venous 1.3 mmol/L (-2.0 to 3.0); Bicarbonate (HCO3v) 27.1 mmol/L (22.0-28.0); CO2 Tension (PvCO2) 45.6 mmHg (42.0-51.0); Calcium, Ionized 1.08 mmol/L (1.15-1.33); Chloride 101 mmol/L (98-107); Hemoglobin - Calc 17.6 g/dL (12.0-16.0); Potassium 5.3 mmol/L (3.5-5.1); Sodium 136 mmol/L (138-145); T. Carbon Dioxide 28.5 mmol/L (22.0-28.0); vO2 Saturation-calc 87.9 % (60.0-85.0)
[2021-03-03] MEDS ORDERED: Insulin Regular 300 UNITS/3 ML VIAL ONE (09:10)
== END 2021-03-03 10:07 | disposition left against medical advice (07) ==
LOC: BURERS 07:51
DX: J44.1 Chronic obstructive pulmonary disease with (acute) exacerbation (principal); E86.0 Dehydration; E11.65 Type 2 diabetes mellitus with hyperglycemia; D75.1 Secondary polycythemia; I10 Essential (primary) hypertension; E28.2 Polycystic ovarian syndrome; F17.210 Nicotine dependence, cigarettes, uncomplicated; Z79.899 Other long term (current) drug therapy; Z79.4 Long term (current) use of insulin
CPT/HCPCS: 36416; 71045; 71275; 80053; 82330; 82803; 83605; 83690; 83880; 84484; 84703; 85025; 85379; 87040; 93005; 94760; 96374; 96375; 36415-59; J1815; J2930; J7620

== ENCOUNTER 2021-03-12 12:19 | Emergency (ER) | payer OTHER ==
[2021-03-12] MEDS ORDERED: Lidocaine 1% PF 5 ML VIAL ONE (12:44)
[2021-03-12] MEDS ORDERED: Ibuprofen 800 MG TAB ONE (13:09)
== END 2021-03-12 13:20 | disposition home or self-care (01) ==
LOC: BURERS 12:19
DX: L02.211 Cutaneous abscess of abdominal wall (principal); E11.9 Type 2 diabetes mellitus without complications; I10 Essential (primary) hypertension; J44.9 Chronic obstructive pulmonary disease, unspecified; F17.210 Nicotine dependence, cigarettes, uncomplicated; Z79.899 Other long term (current) drug therapy; Z79.4 Long term (current) use of insulin
CPT/HCPCS: 10060

== ENCOUNTER 2021-03-14 17:50 | Emergency (ER) | payer OTHER ==
[2021-03-14] MEDS ORDERED: Ketorolac Tromethamine 30 MG/ML VIAL ONE (18:23)
[2021-03-14] MEDS ORDERED: Ondansetron PF 4 MG/2 ML Vial ONE (18:23)
[2021-03-14] MEDS ORDERED: Morphine 2 MG/ML VIAL ONE (18:23)
[2021-03-14] MEDS ORDERED: metroNIDAZOLE 250 MG TAB ONE (18:23)
[2021-03-14 18:29] LABS: #Basophils 0.1 thou/uL (0.0-0.2); #Eosinphils 0.2 thou/uL (0.0-0.7); #Lymphocytes 3.1 thou/uL (1.20-3.40); #Monocytes 0.5 thou/uL (0.11-0.59); #Neutrophils 7.4 thou/uL (1.40-6.50); %Basophils 0.8 % (0.0-1.0); %Eosinophils 1.6 % (0.0-10.0); %Lymphocytes 27.8 % (21.0-51.0); %Monocytes 4.7 % (0.0-10.0); %Neutrophils 65.2 % (42.0-75.0); Hemoglobin 19.2 g/dL (12.0-16.0); Mean Corpuscular HGB CONC 34.8 g/dL (32.0-36.0); Mean Corpuscular Volume 94.9 fL (78.0-98.0); Mean Platelet Volume 7.8 fL (7.4-10.4); Platelet Count 258 thou/uL (130-400); RBC Distribution Width 12.6 % (11.5-14.5); White Blood Cell (WBC) Count 11.3 thou/uL (4.8-10.8)
[2021-03-14 19:18] LABS: ALT (SGPT) 21 U/L (8-55); AST (SGOT) 10 U/L (5-34); Albumin 3.9 g/dL (3.5-5.0); Alkaline Phosphatase 84 U/L (40-110); Anion Gap 19 mmol/L (10-20); BUN (Urea Nitrogen) 11 mg/dL (7.0-18.7); Bilirubin, Total 0.4 mg/dL (0.2-1.2); Calc. Creatinine Clearance 0 mL/min (70-130); Carbon Dioxide 24 mmol/L (22-29); Chloride 98 mmol/L (98-107); Glucose 518 mg/dL (70-105); Potassium 4.5 mmol/L (3.5-5.1); Protein, Total 7.9 g/dL (6.0-8.3); Sodium 136 mmol/L (136-145)
[2021-03-14] MEDS ORDERED: Insulin Regular 300 UNITS/3 ML VIAL ONE (20:15)
[2021-03-14] MEDS ORDERED: Metoprolol Tartrate 25 MG TAB PO SCH (20:30)
[2021-03-14 20:46] LABS: Bilirubin Negative (Negative); Blood, Urine Trace (Negative); Clarity Clear (Clear); Glucose, Urine (Dipstick) >=1000 mg/dL (Negative); Ketone, Urine Negative (Negative); Leukocyte Negative (Negative); Nitrite Negative (Negative); Protein, Urine (Dipstick) 30 mg/dL (Neg-Trace); Specific Gravity, Urine 1.015 (1.005-1.030); Urobilinogen 0.2 mg/dL (Less than 2); pH, Urine 5.5 (5.0-9.0)
[2021-03-14 20:53] LABS: Bacteria/HPF 1+ HPF (None Seen); RBC/HPF 0-3 HPF (0-3); Sperm/HPF Rare HPF (None Seen); Squamous Epithelial 0-3 HPF (0-3); WBC/HPF 0-3 HPF (0-3); Yeast-Budding 1+ HPF (None Seen); Yeast-Hyphae Rare HPF (None Seen)
== END 2021-03-14 20:50 | disposition short-term general hospital (02) ==
LOC: BURERS 17:50
DX: A41.9 Sepsis, unspecified organism (principal); N76.4 Abscess of vulva; L73.2 Hidradenitis suppurativa; E11.65 Type 2 diabetes mellitus with hyperglycemia; I10 Essential (primary) hypertension; J44.9 Chronic obstructive pulmonary disease, unspecified; F17.210 Nicotine dependence, cigarettes, uncomplicated; Z79.899 Other long term (current) drug therapy; Z79.4 Long term (current) use of insulin
CPT/HCPCS: 36415; 36416; 80053; 81003; 81015; 83605; 85025; 87040; 87070; 87077; 87086; 87186; 87205; 96365; 96366; 96375; J1815; J1885; J1956; J2270; J2405; J3370

== ENCOUNTER 2021-04-06 07:10 | Emergency (ER) | payer OTHER | END 2021-04-06 07:35 | disposition home or self-care (01) | LOC: BURERS 07:10 | DX: R51.9 Headache, unspecified (principal); R00.0 Tachycardia, unspecified; J44.9 Chronic obstructive pulmonary disease, unspecified; I10 Essential (primary) hypertension; K50.90 Crohn's disease, unspecified, without complications; E11.43 Type 2 diabetes mellitus with diabetic autonomic (poly)neuropathy; K31.84 Gastroparesis; F17.210 Nicotine dependence, cigarettes, uncomplicated; Z79.899 Other long term (current) drug therapy; Z79.4 Long term (current) use of insulin | CPT/HCPCS: 99283 ==

== ENCOUNTER 2021-04-15 14:27 | Emergency (ER) | payer OTHER ==
[~2021-04-15 14:27] MED LIST: Iopamidol 370 76% 100 ML VIAL ONE
[2021-04-15] MEDS ORDERED: Ondansetron PF 4 MG/2 ML Vial ONE (14:39)
[2021-04-15 14:46] LABS: Bilirubin Moderate (Negative); Blood, Urine Trace (Negative); Clarity Clear (Clear); Glucose, Urine (Dipstick) 500 mg/dL (Negative); Ketone, Urine 40 mg/dL (Negative); Leukocyte Negative (Negative); Nitrite Negative (Negative); Protein, Urine (Dipstick) > or equal to 300 mg/dL (Neg-Trace); Specific Gravity, Urine 1.025 (1.005-1.030)
[2021-04-15] MEDS ORDERED: Promethazine HCl 25 MG/ML VIAL ONE (14:47)
[2021-04-15 14:57] LABS: Bacteria/HPF Rare-Few HPF (None Seen); Transitional Epithelial 0-3 HPF (None Seen); WBC/HPF 0-3 HPF (0-3)
[2021-04-15 15:08] LABS: #Lymphocytes 1.7 thou/uL (1.20-3.40); #Monocytes 0.4 thou/uL (0.11-0.59); #Neutrophils 14.9 thou/uL (1.40-6.50); %Basophils 0.3 % (0.0-1.0); %Eosinophils 0.1 % (0.0-10.0); %Lymphocytes 10.1 % (21.0-51.0); %Monocytes 2.4 % (0.0-10.0); %Neutrophils 87.1 % (42.0-75.0); Hemoglobin 20.5 g/dL (12.0-16.0); Mean Corpuscular HGB CONC 34.8 g/dL (32.0-36.0); Mean Corpuscular Volume 94.8 fL (78.0-98.0); Mean Platelet Volume 7.7 fL (7.4-10.4); Platelet Count 243 thou/uL (130-400); RBC Distribution Width 12.8 % (11.5-14.5); Red Blood Cell (RBC) Count 6.22 mill/uL (4.20-5.40); White Blood Cell (WBC) Count 17.1 thou/uL (4.8-10.8)
[2021-04-15 15:09] LABS: ALT (SGPT) 38 U/L (8-55); AST (SGOT) 19 U/L (5-34); Albumin 4.2 g/dL (3.5-5.0); Alkaline Phosphatase 63 U/L (40-110); Anion Gap 19 mmol/L (10-20); BUN (Urea Nitrogen) 12 mg/dL (7.0-18.7); Bilirubin, Total 0.7 mg/dL (0.2-1.2); Calc. Creatinine Clearance 0 mL/min (70-130); Calcium 9.7 mg/dL (7.8-10.44); Carbon Dioxide 28 mmol/L (22-29); Chloride 95 mmol/L (98-107); Globulin 4.1 g/dL (2.4-3.5); Glucose 378 mg/dL (70-105); Potassium 4.3 mmol/L (3.5-5.1); Protein, Total 8.3 g/dL (6.0-8.3); Sodium 138 mmol/L (136-145)
[2021-04-15] MEDS ORDERED: Magnesium 2 GM/50 ML BAG (IN WATER) ONE (16:03)
[2021-04-15 16:11] LABS: Pregnancy Test - Urine (BHCG) Negative (Negative)
[2021-04-15 16:12] LABS: Pregu Control Background? CLEAR/WHITE (CLR/WHITE); Pregu Control Bar Appear? YES (CONTROL BAR); Specific Gravity 1.025 (1.002-1.036)
== END 2021-04-15 16:56 | disposition home or self-care (01) ==
LOC: BURERS 14:27
DX: E11.43 Type 2 diabetes mellitus with diabetic autonomic (poly)neuropathy (principal); K31.84 Gastroparesis; E11.65 Type 2 diabetes mellitus with hyperglycemia; E28.2 Polycystic ovarian syndrome; I10 Essential (primary) hypertension; J44.9 Chronic obstructive pulmonary disease, unspecified; F17.210 Nicotine dependence, cigarettes, uncomplicated; R11.2 Nausea with vomiting, unspecified; D72.829 Elevated white blood cell count, unspecified; Z20.822 Contact with and (suspected) exposure to COVID-19; Z79.4 Long term (current) use of insulin
CPT/HCPCS: 36416; 71045; 74177; 80053; 81003; 81015; 81025; 83605; 83690; 83735; 84484; 85025; 93005; 96365; 96372; 96375; J0500; J2405; J2550; J3475; Q9967

== ENCOUNTER 2021-04-16 04:23 | Emergency (ER) | payer OTHER ==
[2021-04-16] MEDS ORDERED: Pantoprazole 40 MG VIAL ONE (05:00)
[2021-04-16] MEDS ORDERED: Metoclopramide HCl 10 MG/2 ML VIAL ONE (05:00)
[2021-04-16 05:15] LABS: #Basophils 0.1 thou/uL (0.0-0.2); #Lymphocytes 1.3 thou/uL (1.20-3.40); #Monocytes 0.5 thou/uL (0.11-0.59); #Neutrophils 14.7 thou/uL (1.40-6.50); %Basophils 0.4 % (0.0-1.0); %Eosinophils 0.1 % (0.0-10.0); %Monocytes 3.2 % (0.0-10.0); %Neutrophils 88.3 % (42.0-75.0); Hemoglobin 19.4 g/dL (12.0-16.0); Mean Corpuscular HGB CONC 33.5 g/dL (32.0-36.0); Mean Corpuscular Hemoglobin 32.6 pg (27.0-31.0); Mean Corpuscular Volume 97.3 fL (78.0-98.0); Mean Platelet Volume 7.8 fL (7.4-10.4); Platelet Count 234 thou/uL (130-400); Red Blood Cell (RBC) Count 5.95 mill/uL (4.20-5.40); White Blood Cell (WBC) Count 16.7 thou/uL (4.8-10.8)
[2021-04-16 05:27] LABS: Base Excess-Venous 3.3 mmol/L (-2.0 to 3.0); CO2 Tension (PvCO2) 41.6 mmHg (42.0-51.0); Calcium, Ionized 1.04 mmol/L (1.15-1.33); Chloride 97 mmol/L (98-107); Hemoglobin - Calc 18.4 g/dL (12.0-16.0); Potassium 3.9 mmol/L (3.5-5.1); Sodium 139 mmol/L (138-145); T. Carbon Dioxide 29.3 mmol/L (22.0-28.0)
[2021-04-16 05:31] LABS: ALT (SGPT) 29 U/L (8-55); AST (SGOT) 15 U/L (5-34); Alkaline Phosphatase 60 U/L (40-110); Anion Gap 18 mmol/L (10-20); BUN (Urea Nitrogen) 13 mg/dL (7.0-18.7); Bilirubin, Total 0.7 mg/dL (0.2-1.2); CK (CPK) 174 U/L (29-168); Calc. Creatinine Clearance 0 mL/min (70-130); Calcium 9.6 mg/dL (7.8-10.44); Carbon Dioxide 29 mmol/L (22-29); Chloride 95 mmol/L (98-107); Globulin 3.7 g/dL (2.4-3.5); Glucose 417 mg/dL (70-105); Lipase 41 U/L (8-78); Magnesium 1.5 mg/dL (1.6-2.6); Potassium 3.9 mmol/L (3.5-5.1); Protein, Total 7.7 g/dL (6.0-8.3); Sodium 138 mmol/L (136-145)
[2021-04-16 05:51] LABS: Bilirubin Small (Negative); Blood, Urine Trace (Negative); Clarity Slightly Cloudy (Clear); Glucose, Urine (Dipstick) 500 mg/dL (Negative); Ketone, Urine 80 mg/dL (Negative); Leukocyte Negative (Negative); Nitrite Negative (Negative); Protein, Urine (Dipstick) > or equal to 300 mg/dL (Neg-Trace); Specific Gravity, Urine 1.025 (1.005-1.030)
[2021-04-16] MEDS ORDERED: cefTRIAXone\\ROCEPHIN 2 GM VIAL ONE (05:55)
[2021-04-16] MEDS ORDERED: Sodium Chloride 0.9% 100 ML ONE (05:56)
[2021-04-16 07:03] LABS: SARS-CoV-2 NAA Rapid Test Not Detected (NotDetected)
== END 2021-04-16 06:20 | disposition left against medical advice (07) ==
LOC: BURERS 04:23
DX: K92.2 Gastrointestinal hemorrhage, unspecified (principal); E83.42 Hypomagnesemia; E11.43 Type 2 diabetes mellitus with diabetic autonomic (poly)neuropathy; K31.84 Gastroparesis; I10 Essential (primary) hypertension; J44.9 Chronic obstructive pulmonary disease, unspecified; F17.210 Nicotine dependence, cigarettes, uncomplicated; Z20.822 Contact with and (suspected) exposure to COVID-19
CPT/HCPCS: 0240U; 36415; 80053; 81003; 82274; 82330; 82550; 82803; 83605; 83690; 83735; 84443; 84484; 85025; 87040; 93005; 96365; 96375; C9113; J0696; J2765; J3490

== ENCOUNTER 2021-06-02 13:21 | Emergency (ER) | payer OTHER | END 2021-06-02 13:55 | disposition home or self-care (01) | LOC: BURERS 13:21 | DX: J20.9 Acute bronchitis, unspecified (principal); F15.20 Other stimulant dependence, uncomplicated; E11.9 Type 2 diabetes mellitus without complications; I10 Essential (primary) hypertension; J44.9 Chronic obstructive pulmonary disease, unspecified; F17.210 Nicotine dependence, cigarettes, uncomplicated | CPT/HCPCS: 71045 ==

== ENCOUNTER 2021-06-14 05:37 | Emergency (ER) | payer OTHER ==
[2021-06-14] MEDS ORDERED: Promethazine HCl 25 MG/ML VIAL ONE (06:17)
[2021-06-14 06:38] LABS: #Lymphocytes 1.2 thou/uL (1.20-3.40); #Monocytes 0.3 thou/uL (0.11-0.59); %Basophils 0.3 % (0.0-1.0); %Eosinophils 0.3 % (0.0-10.0); %Lymphocytes 10.3 % (21.0-51.0); %Monocytes 2.4 % (0.0-10.0); %Neutrophils 86.7 % (42.0-75.0); BHCG - Serum Negative (NEGATIVE); Hemoglobin 17.8 g/dL (12.0-16.0); Mean Corpuscular HGB CONC 34.4 g/dL (32.0-36.0); Mean Corpuscular Hemoglobin 32.1 pg (27.0-31.0); Mean Corpuscular Volume 93.3 fL (78.0-98.0); Mean Platelet Volume 8.4 fL (7.4-10.4); Platelet Count 217 thou/uL (130-400); Pregs Control Background? CLEAR/WHITE (CLR/WHITE); Pregs Control Bar Appear? YES (CONTROL BAR); RBC Distribution Width 12.2 % (11.5-14.5); Red Blood Cell (RBC) Count 5.56 mill/uL (4.20-5.40); White Blood Cell (WBC) Count 11.6 thou/uL (4.8-10.8)
[2021-06-14 06:39] LABS: ALT (SGPT) 40 U/L (8-55); AST (SGOT) 15 U/L (5-34); Albumin 3.6 g/dL (3.5-5.0); Alkaline Phosphatase 66 U/L (40-110); Anion Gap 18 mmol/L (10-20); BUN (Urea Nitrogen) 12 mg/dL (7.0-18.7); Bilirubin, Total 0.8 mg/dL (0.2-1.2); Calc. Creatinine Clearance 0 mL/min (70-130); Calcium 9.7 mg/dL (7.8-10.44); Carbon Dioxide 30 mmol/L (22-29); Chloride 88 mmol/L (98-107); Globulin 4.1 g/dL (2.4-3.5); Lipase 54 U/L (8-78); Magnesium 1.2 mg/dL (1.6-2.6); Potassium 3.9 mmol/L (3.5-5.1); Protein, Total 7.7 g/dL (6.0-8.3); Sodium 132 mmol/L (136-145)
[2021-06-14 06:48] LABS: Glucose 681 mg/dL (70-105)
[2021-06-14] MEDS ORDERED: Magnesium 2 GM/50 ML BAG (IN WATER) ONE (07:45)
== END 2021-06-14 08:50 | disposition home or self-care (01) ==
LOC: BURERS 05:37
DX: E86.0 Dehydration (principal); E83.42 Hypomagnesemia; R11.2 Nausea with vomiting, unspecified; R00.0 Tachycardia, unspecified; Z91.14 Patient's other noncompliance with medication regimen; E11.9 Type 2 diabetes mellitus without complications; I10 Essential (primary) hypertension; J44.9 Chronic obstructive pulmonary disease, unspecified; F17.210 Nicotine dependence, cigarettes, uncomplicated; Z79.899 Other long term (current) drug therapy
CPT/HCPCS: 36416; 71045; 80053; 83605; 83690; 83735; 84703; 85025; 94760; 96365; 96367; 96372; J0500; J2550; J3475

== ENCOUNTER 2021-06-15 11:04 | Emergency (ER) | payer OTHER | END 2021-06-15 11:28 | disposition home or self-care (01) | LOC: BURERS 11:04 | DX: R11.2 Nausea with vomiting, unspecified (principal); E11.9 Type 2 diabetes mellitus without complications; I10 Essential (primary) hypertension; J44.9 Chronic obstructive pulmonary disease, unspecified; F17.210 Nicotine dependence, cigarettes, uncomplicated; Z79.899 Other long term (current) drug therapy | CPT/HCPCS: 99283 ==

== ENCOUNTER 2021-07-14 02:28 | Emergency (ER) | payer OTHER ==
[2021-07-14] MEDS ORDERED: Ondansetron PF 4 MG/2 ML Vial ONE (03:03)
[2021-07-14] MEDS ORDERED: Mag-Al Plus 1200 MG/1200 MG/120 MG/30 ML UDCUP ONE (03:05)
[2021-07-14] MEDS ORDERED: Lidocaine Viscous Sol 2% 15 ml UD Cup ONE (03:05)
[2021-07-14 03:25] LABS: #Basophils 0.1 thou/uL (0.0-0.2); #Lymphocytes 1.3 thou/uL (1.20-3.40); #Monocytes 0.4 thou/uL (0.11-0.59); #Neutrophils 10.5 thou/uL (1.40-6.50); %Basophils 0.5 % (0.0-1.0); %Eosinophils 0.3 % (0.0-10.0); %Lymphocytes 10.5 % (21.0-51.0); %Monocytes 3.2 % (0.0-10.0); %Neutrophils 85.6 % (42.0-75.0); Hemoglobin 17.1 g/dL (12.0-16.0); Mean Corpuscular HGB CONC 35.9 g/dL (32.0-36.0); Mean Corpuscular Hemoglobin 33.2 pg (27.0-31.0); Mean Corpuscular Volume 92.3 fL (78.0-98.0); Mean Platelet Volume 7.6 fL (7.4-10.4); Platelet Count 255 thou/uL (130-400); RBC Distribution Width 13.4 % (11.5-14.5); Red Blood Cell (RBC) Count 5.15 mill/uL (4.20-5.40); White Blood Cell (WBC) Count 12.2 thou/uL (4.8-10.8)
[2021-07-14 03:37] LABS: ALT (SGPT) 40 U/L (8-55); AST (SGOT) 20 U/L (5-34); Albumin 3.8 g/dL (3.5-5.0); Alkaline Phosphatase 61 U/L (40-110); Anion Gap 17 mmol/L (10-20); BUN (Urea Nitrogen) 7 mg/dL (7.0-18.7); Bilirubin, Total 0.8 mg/dL (0.2-1.2); Calc. Creatinine Clearance 0 mL/min (70-130); Calcium 9.4 mg/dL (7.8-10.44); Carbon Dioxide 27 mmol/L (22-29); Chloride 98 mmol/L (98-107); Protein, Total 7.8 g/dL (6.0-8.3); Sodium 138 mmol/L (136-145)
[2021-07-14 03:47] LABS: Glucose 353 mg/dL (70-105)
[2021-07-14 04:33] LABS: Bilirubin Small (Negative); Blood, Urine Trace (Negative); Clarity Clear (Clear); Glucose, Urine (Dipstick) 500 mg/dL (Negative); Ketone, Urine 80 mg/dL (Negative); Leukocyte Negative (Negative); Nitrite Negative (Negative); Protein, Urine (Dipstick) > or equal to 300 mg/dL (Neg-Trace); Urobilinogen 0.2 mg/dL (Less than 2)
[2021-07-14 04:38] LABS: Pregnancy Test - Urine (BHCG) Negative (Negative); Pregu Control Background? CLEAR/WHITE (CLR/WHITE); Pregu Control Bar Appear? YES (CONTROL BAR)
[2021-07-14 04:44] LABS: Bacteria/HPF Rare-Few HPF (None Seen); Mucous/LPF 1+ LPF (<2+); RBC/HPF 0-3 HPF (0-3); WBC/HPF None Seen HPF (0-3)
[2021-07-14 04:46] LABS: Amphetamine Not Detected (NotDetected); Barbiturates Screen Not Detected (NotDetected); Benzodiazepine Screen Not Detected (NotDetected); Cocaine Metabolite Screen Not Detected (NotDetected); Medtox Control Line Valid? VALID (VALID); Methadone Not Detected (NotDetected); Methamphetamine Not Detected (NotDetected); Opiate Screen Not Detected (NotDetected); Oxycodone Screen Not Detected (NotDetected); Phencyclidine (PCP) Not Detected (NotDetected); THC/Cannabinoid Screen Detected (NotDetected); Tricyclic Screen Not Detected (NotDetected)
== END 2021-07-14 05:45 | disposition home or self-care (01) ==
LOC: BURERS 02:28
DX: K52.9 Noninfective gastroenteritis and colitis, unspecified (principal); E11.65 Type 2 diabetes mellitus with hyperglycemia; Z71.6 Tobacco abuse counseling; K50.90 Crohn's disease, unspecified, without complications; E28.2 Polycystic ovarian syndrome; I10 Essential (primary) hypertension; J44.9 Chronic obstructive pulmonary disease, unspecified; F17.210 Nicotine dependence, cigarettes, uncomplicated; E11.43 Type 2 diabetes mellitus with diabetic autonomic (poly)neuropathy; K31.84 Gastroparesis; Z79.4 Long term (current) use of insulin; Z79.899 Other long term (current) drug therapy
CPT/HCPCS: 80053; 80306; 81003; 81015; 81025; 83605; 85025; 96374; 99406; J2405

== ENCOUNTER 2021-07-25 17:53 | Emergency (ER) | payer OTHER | END 2021-07-25 20:16 | LOC: BURERS 17:53 | DX: Z53.21 Procedure and treatment not carried out due to patient leaving prior to being seen by health care provider (principal) ==

== ENCOUNTER 2021-08-18 09:58 | Emergency (ER) | payer OTHER ==
[2021-08-18 16:52] LABS: SARS-CoV-2 PCR by NAA Not Detected (NotDetected)
== END 2021-08-18 10:28 | disposition home or self-care (01) ==
LOC: BURERS 09:58
DX: R05.9 Cough, unspecified (principal); R06.02 Shortness of breath; Z20.822 Contact with and (suspected) exposure to COVID-19; F17.210 Nicotine dependence, cigarettes, uncomplicated
CPT/HCPCS: 99283; U0003; U0005

== ENCOUNTER 2021-09-14 14:28 | Emergency (ER) | payer OTHER ==
[2021-09-14] MEDS ORDERED: Promethazine HCl 25 MG/ML VIAL ONE (15:32)
[2021-09-14 15:37] LABS: Bilirubin Moderate (Negative); Blood, Urine Small (Negative); Clarity Clear (Clear); Glucose, Urine (Dipstick) 500 mg/dL (Negative); Ketone, Urine 40 mg/dL (Negative); Leukocyte Negative (Negative); Nitrite Negative (Negative); Protein, Urine (Dipstick) > or equal to 300 mg/dL (Neg-Trace); Urobilinogen 0.2 mg/dL (Less than 2); pH, Urine 6.5 (5.0-9.0)
[2021-09-14 15:41] LABS: #Basophils 0.1 thou/uL (0.0-0.2); #Lymphocytes 1.8 thou/uL (1.20-3.40); #Monocytes 0.6 thou/uL (0.11-0.59); #Neutrophils 11.3 thou/uL (1.40-6.50); %Basophils 0.7 % (0.0-1.0); %Eosinophils 0.4 % (0.0-10.0); %Lymphocytes 12.7 % (21.0-51.0); %Neutrophils 82.2 % (42.0-75.0); Mean Corpuscular HGB CONC 35.9 g/dL (32.0-36.0); Mean Corpuscular Hemoglobin 33.5 pg (27.0-31.0); Mean Corpuscular Volume 93.3 fL (78.0-98.0); Platelet Count 223 thou/uL (130-400); RBC Distribution Width 12.2 % (11.5-14.5); Red Blood Cell (RBC) Count 5.38 mill/uL (4.20-5.40); White Blood Cell (WBC) Count 13.8 thou/uL (4.8-10.8)
[2021-09-14 15:44] LABS: Specific Gravity, Urine Greater/Equal 1.030 (1.002-1.036)
[2021-09-14 16:21] LABS: RBC/HPF 0-3 HPF (0-3)
[2021-09-14 16:22] LABS: Bacteria/HPF Rare-Few HPF (None Seen); Squamous Epithelial 0-3 HPF (0-3); WBC/HPF 0-3 HPF (0-3)
[2021-09-14 16:26] LABS: ALT (SGPT) 43 U/L (8-55); AST (SGOT) 28 U/L (5-34); Albumin 3.8 g/dL (3.5-5.0); Alkaline Phosphatase 60 U/L (40-110); Anion Gap 24 mmol/L (10-20); BUN (Urea Nitrogen) 10 mg/dL (7.0-18.7); Bilirubin, Total 0.7 mg/dL (0.2-1.2); Calc. Creatinine Clearance 0 mL/min (70-130); Carbon Dioxide 23 mmol/L (22-29); Chloride 94 mmol/L (98-107); Globulin 3.8 g/dL (2.4-3.5); Glucose 370 mg/dL (70-105); Lipase 38 U/L (8-78); Potassium 4.6 mmol/L (3.5-5.1); Protein, Total 7.6 g/dL (6.0-8.3); Sodium 136 mmol/L (136-145)
== END 2021-09-14 17:02 | disposition home or self-care (01) ==
LOC: BURERS 14:28
DX: R11.2 Nausea with vomiting, unspecified (principal); F12.90 Cannabis use, unspecified, uncomplicated; E11.9 Type 2 diabetes mellitus without complications; I10 Essential (primary) hypertension; J44.9 Chronic obstructive pulmonary disease, unspecified; F17.210 Nicotine dependence, cigarettes, uncomplicated
CPT/HCPCS: 36416; 71045; 80053; 81003; 81015; 83690; 84443; 85025; 94760; 96365; J2550

== ENCOUNTER 2021-10-01 17:50 | Emergency (ER) | payer OTHER ==
[2021-10-01] MEDS ORDERED: Insulin Regular 300 UNITS/3 ML VIAL ONE (19:20)
[2021-10-01] MEDS ORDERED: Ondansetron PF 4 MG/2 ML Vial ONE (19:20)
[2021-10-01 19:33] LABS: Bilirubin Negative (Negative); Blood, Urine Trace (Negative); Clarity Clear (Clear); Glucose, Urine (Dipstick) >=1000 mg/dL (Negative); Ketone, Urine Negative (Negative); Leukocyte Negative (Negative); Nitrite Negative (Negative); Protein, Urine (Dipstick) Trace mg/dL (Neg-Trace); Urobilinogen 0.2 mg/dL (Less than 2)
[2021-10-01 19:34] LABS: Specific Gravity, Urine 1.026 (1.002-1.036)
[2021-10-01 19:38] LABS: #Lymphocytes 0.9 thou/uL (1.20-3.40); #Monocytes 0.1 thou/uL (0.11-0.59); #Neutrophils 8.7 thou/uL (1.40-6.50); %Basophils 0.3 % (0.0-1.0); %Eosinophils 0.1 % (0.0-10.0); %Lymphocytes 9.3 % (21.0-51.0); %Monocytes 0.8 % (0.0-10.0); %Neutrophils 89.5 % (42.0-75.0); Hemoglobin 17.1 g/dL (12.0-16.0); Mean Corpuscular Hemoglobin 31.8 pg (27.0-31.0); Mean Corpuscular Volume 96.5 fL (78.0-98.0); Mean Platelet Volume 7.4 fL (7.4-10.4); Platelet Count 243 thou/uL (130-400); RBC Distribution Width 12.6 % (11.5-14.5); Red Blood Cell (RBC) Count 5.37 mill/uL (4.20-5.40); White Blood Cell (WBC) Count 9.7 thou/uL (4.8-10.8)
[2021-10-01 19:38] LABS: RBC/HPF 0-3 HPF (0-3); Squamous Epithelial 0-3 HPF (0-3); WBC/HPF 0-3 HPF (0-3)
[2021-10-01 19:39] LABS: Bacteria/HPF 1+ HPF (None Seen)
[2021-10-01 19:52] LABS: ALT (SGPT) 53 U/L (8-55); AST (SGOT) 22 U/L (5-34); Albumin 3.7 g/dL (3.5-5.0); Alkaline Phosphatase 93 U/L (40-110); Anion Gap 18 mmol/L (10-20); BUN (Urea Nitrogen) 11 mg/dL (7.0-18.7); Bilirubin, Total 0.5 mg/dL (0.2-1.2); Calc. Creatinine Clearance 0 mL/min (70-130); Calcium 9.5 mg/dL (7.8-10.44); Carbon Dioxide 20 mmol/L (22-29); Chloride 97 mmol/L (98-107); Globulin 3.9 g/dL (2.4-3.5); Magnesium 1.4 mg/dL (1.6-2.6); Potassium 4.4 mmol/L (3.5-5.1); Protein, Total 7.6 g/dL (6.0-8.3); Sodium 131 mmol/L (136-145)
[2021-10-01 19:59] LABS: Glucose 649 mg/dL (70-105)
== END 2021-10-01 20:15 | disposition left against medical advice (07) ==
LOC: BURERS 17:50
DX: E10.65 Type 1 diabetes mellitus with hyperglycemia (principal); I10 Essential (primary) hypertension; J44.9 Chronic obstructive pulmonary disease, unspecified; F17.210 Nicotine dependence, cigarettes, uncomplicated
CPT/HCPCS: 36416; 80053; 81003; 81015; 83735; 85025; 94760; 96374; 96375; J1815; J2405

== ENCOUNTER 2021-10-03 13:37 | Emergency (ER) | payer OTHER ==
[2021-10-03] MEDS ORDERED: predniSONE 20 MG TAB ONE (14:53)
== END 2021-10-03 14:57 | disposition left against medical advice (07) ==
LOC: BURERS 13:37
DX: J02.9 Acute pharyngitis, unspecified (principal); E11.9 Type 2 diabetes mellitus without complications; I10 Essential (primary) hypertension; J44.9 Chronic obstructive pulmonary disease, unspecified; F17.210 Nicotine dependence, cigarettes, uncomplicated
CPT/HCPCS: 36416; 87081; 87430; 99283; J7512

== ENCOUNTER 2021-10-16 11:41 | Emergency (ER) | payer OTHER ==
[2021-10-16 12:17] LABS: Pregnancy Test - Urine (BHCG) Negative (Negative); Pregu Control Background? CLEAR/WHITE (CLR/WHITE); Pregu Control Bar Appear? YES (CONTROL BAR)
[2021-10-16 12:19] LABS: Specific Gravity 1.025 (1.002-1.036)
[2021-10-16 12:19] LABS: Bilirubin Small (Negative); Blood, Urine Trace (Negative); Clarity Clear (Clear); Glucose, Urine (Dipstick) 500 mg/dL (Negative); Ketone, Urine Trace mg/dL (Negative); Leukocyte Negative (Negative); Nitrite Negative (Negative); Protein, Urine (Dipstick) 100 mg/dL (Neg-Trace); pH, Urine 5.5 (5.0-9.0)
[2021-10-16 12:23] LABS: Specific Gravity, Urine 1.025 (1.002-1.036)
[2021-10-16 12:27] LABS: #Basophils 0.1 thou/uL (0.0-0.2); #Eosinphils 0.2 thou/uL (0.0-0.7); #Lymphocytes 3.8 thou/uL (1.20-3.40); #Monocytes 0.3 thou/uL (0.11-0.59); #Neutrophils 7.6 thou/uL (1.40-6.50); %Basophils 0.7 % (0.0-1.0); %Eosinophils 1.3 % (0.0-10.0); %Lymphocytes 31.6 % (21.0-51.0); %Monocytes 2.6 % (0.0-10.0); %Neutrophils 63.7 % (42.0-75.0); Hemoglobin 16.4 g/dL (12.0-16.0); Mean Corpuscular HGB CONC 35.6 g/dL (32.0-36.0); Mean Corpuscular Hemoglobin 33.1 pg (27.0-31.0); Mean Corpuscular Volume 92.9 fL (78.0-98.0); Mean Platelet Volume 8.1 fL (7.4-10.4); Platelet Count 208 thou/uL (130-400); RBC Distribution Width 12.3 % (11.5-14.5); Red Blood Cell (RBC) Count 4.95 mill/uL (4.20-5.40); White Blood Cell (WBC) Count 11.9 thou/uL (4.8-10.8)
[2021-10-16 12:35] LABS: Bacteria/HPF 1+ HPF (None Seen); Epithelial Cast 0-3 LPF (None Seen); RBC/HPF 0-3 HPF (0-3); WBC/HPF 0-3 HPF (0-3)
[2021-10-16 12:43] LABS: ALT (SGPT) 39 U/L (8-55); AST (SGOT) 32 U/L (5-34); Albumin 3.3 g/dL (3.5-5.0); Alkaline Phosphatase 66 U/L (40-110); Anion Gap 16 mmol/L (10-20); BUN (Urea Nitrogen) 7 mg/dL (7.0-18.7); Bilirubin, Total 0.2 mg/dL (0.2-1.2); Calc. Creatinine Clearance 0 mL/min (70-130); Calcium 8.3 mg/dL (7.8-10.44); Carbon Dioxide 24 mmol/L (22-29); Chloride 101 mmol/L (98-107); Globulin 3.3 g/dL (2.4-3.5); Glucose 355 mg/dL (70-105); Lipase 35 U/L (8-78); Protein, Total 6.6 g/dL (6.0-8.3); Sodium 137 mmol/L (136-145)
[2021-10-16] MEDS ORDERED: Morphine 4 MG/ML VIAL ONE (13:15)
== END 2021-10-16 15:00 | disposition left against medical advice (07) ==
LOC: BURERS 11:41
DX: M54.50 Low back pain, unspecified (principal); E86.0 Dehydration; I10 Essential (primary) hypertension; E11.9 Type 2 diabetes mellitus without complications; J44.9 Chronic obstructive pulmonary disease, unspecified; F17.210 Nicotine dependence, cigarettes, uncomplicated
CPT/HCPCS: 36415; 80053; 81003; 81015; 81025; 83605; 83690; 85025; 87086; 96374; J2270

== ENCOUNTER 2021-11-23 16:26 | Emergency (ER) | payer OTHER | END 2021-11-23 17:19 | disposition home or self-care (01) | LOC: BURERS 16:26 | DX: E11.65 Type 2 diabetes mellitus with hyperglycemia (principal); R00.0 Tachycardia, unspecified; I10 Essential (primary) hypertension; K21.9 Gastro-esophageal reflux disease without esophagitis; J44.9 Chronic obstructive pulmonary disease, unspecified; F17.210 Nicotine dependence, cigarettes, uncomplicated; Z91.14 Patient's other noncompliance with medication regimen; Z79.4 Long term (current) use of insulin | CPT/HCPCS: 36416; 99284 ==

== ENCOUNTER 2021-12-01 16:43 | Emergency (ER) | payer OTHER ==
[2021-12-01] MEDS ORDERED: Albuterol Sulfate 2.5 mg/0.5 ml Neb ONE (17:08)
[2021-12-01] MEDS ORDERED: predniSONE 20 MG TAB ONE (17:08)
[2021-12-01] MEDS ORDERED: Doxycycline 100 MG CAP ONE (17:53)
== END 2021-12-01 18:01 | disposition home or self-care (01) ==
LOC: BURERS 16:43
DX: J44.1 Chronic obstructive pulmonary disease with (acute) exacerbation (principal); I10 Essential (primary) hypertension; E11.9 Type 2 diabetes mellitus without complications; K21.9 Gastro-esophageal reflux disease without esophagitis; F17.210 Nicotine dependence, cigarettes, uncomplicated
CPT/HCPCS: 94640; J7512; J7611; J7620

== ENCOUNTER 2021-12-15 13:48 | Emergency (ER) | payer OTHER ==
[2021-12-15] MEDS ORDERED: Iopamidol 370 76% 100 ML VIAL FS ONE (13:49)
[2021-12-15] MEDS ORDERED: Aspirin Chewable 81 MG TAB ONE (14:29)
[2021-12-15 14:30] LABS: #Basophils 0.1 thou/uL (0.0-0.2); #Eosinphils 0.2 thou/uL (0.0-0.7); #Lymphocytes 3.1 thou/uL (1.20-3.40); #Monocytes 0.4 thou/uL (0.11-0.59); #Neutrophils 7.5 thou/uL (1.40-6.50); %Basophils 0.6 % (0.0-1.0); %Eosinophils 1.7 % (0.0-10.0); %Lymphocytes 27.7 % (21.0-51.0); %Monocytes 3.3 % (0.0-10.0); %Neutrophils 66.7 % (42.0-75.0); Hemoglobin 16.9 g/dL (12.0-16.0); Mean Corpuscular HGB CONC 33.9 g/dL (32.0-36.0); Mean Corpuscular Hemoglobin 32.7 pg (27.0-31.0); Mean Corpuscular Volume 96.5 fL (78.0-98.0); Mean Platelet Volume 10.3 fL (7.4-10.4); Platelet Count 173 thou/uL (130-400); RBC Distribution Width 13.5 % (11.5-14.5); Red Blood Cell (RBC) Count 5.16 mill/uL (4.20-5.40); White Blood Cell (WBC) Count 11.3 thou/uL (4.8-10.8)
[2021-12-15] MEDS ORDERED: Lorazepam 2 MG/ML VIAL ONE (14:31)
[2021-12-15 14:38] LABS: ALT (SGPT) 43 U/L (8-55); Albumin 3.5 g/dL (3.5-5.0); Alkaline Phosphatase 90 U/L (40-110); Anion Gap 18 mmol/L (10-20); BUN (Urea Nitrogen) 10 mg/dL (7.0-18.7); Bilirubin, Total 0.4 mg/dL (0.2-1.2); Calc. Creatinine Clearance 0 mL/min (70-130); Calcium 9.2 mg/dL (7.8-10.44); Carbon Dioxide 24 mmol/L (22-29); Chloride 98 mmol/L (98-107); Globulin 3.6 g/dL (2.4-3.5); Glucose 432 mg/dL (70-105); Potassium 4.5 mmol/L (3.5-5.1); Protein, Total 7.1 g/dL (6.0-8.3); Sodium 135 mmol/L (136-145)
[2021-12-15 15:00] LABS: AST (SGOT) 28 U/L (5-34)
[2021-12-15] MEDS ORDERED: Insulin Regular 300 UNITS/3 ML VIAL ONE (15:16)
== END 2021-12-15 16:29 | disposition home or self-care (01) ==
LOC: BURERS 13:48
DX: R07.9 Chest pain, unspecified (principal); E11.65 Type 2 diabetes mellitus with hyperglycemia; R00.0 Tachycardia, unspecified; I10 Essential (primary) hypertension; K21.9 Gastro-esophageal reflux disease without esophagitis; J44.9 Chronic obstructive pulmonary disease, unspecified; F17.210 Nicotine dependence, cigarettes, uncomplicated; E66.9 Obesity, unspecified; Z68.45 Body mass index [BMI] 70 or greater, adult
CPT/HCPCS: 36416; 71045; 71275; 80053; 83880; 84484; 85025; 85379; 93005; 94760; 96374; 96375; J1815; J2060; Q9967

== ENCOUNTER 2022-03-13 16:38 | Emergency (ER) | payer OTHER ==
[2022-03-13] MEDS ORDERED: Albuterol Sulfate 2.5 mg/0.5 ml Neb ONE ×2 (16:53→17:20)
[2022-03-13] MEDS ORDERED: methylPREDNISolone Sod Succ/PF 125 MG/2 ML VIAL ONE (16:54)
[2022-03-13 17:18] LABS: Eosinophils 2 % (0-10); Hemoglobin 18.3 g/dL (12.0-16.0); Lymphocytes 31 % (21-51); MDiff Complete? YES; Mean Corpuscular HGB CONC 32.8 g/dL (32.0-36.0); Mean Corpuscular Volume 97.5 fL (78.0-98.0); Mean Platelet Volume 7.6 fL (7.4-10.4); Monocytes 2 % (0-10); Neutrophil 65 % (42-75); Platelet Count 221 thou/uL (130-400); RBC Distribution Width 13.7 % (11.5-14.5); Red Blood Cell (RBC) Count 5.71 mill/uL (4.20-5.40); White Blood Cell (WBC) Count 11.3 thou/uL (4.8-10.8)
[2022-03-13 17:21] LABS: ALT (SGPT) 34 U/L (8-55); AST (SGOT) 24 U/L (5-34); Albumin 3.4 g/dL (3.5-5.0); Alkaline Phosphatase 70 U/L (40-110); Anion Gap 17 mmol/L (10-20); BUN (Urea Nitrogen) 9 mg/dL (7.0-18.7); Bilirubin, Total 0.4 mg/dL (0.2-1.2); Calc. Creatinine Clearance 0 mL/min (70-130); Calcium 9.2 mg/dL (7.8-10.44); Carbon Dioxide 27 mmol/L (22-29); Chloride 98 mmol/L (98-107); Globulin 4.1 g/dL (2.4-3.5); Glucose 397 mg/dL (70-105); Potassium 4.2 mmol/L (3.5-5.1); Protein, Total 7.5 g/dL (6.0-8.3); Sodium 138 mmol/L (136-145)
[2022-03-13] MEDS ORDERED: Ipratropium Bromide 2.5 ml Neb ONE (17:27)
[2022-03-13] MEDS ORDERED: Doxycycline 100 MG CAP ONE (17:43)
[2022-03-13 21:21] LABS: SARS-CoV-2 NAA Rapid Test Not Detected (NotDetected)
== END 2022-03-13 21:07 | disposition short-term general hospital (02) ==
LOC: BURERS 16:38
DX: J44.1 Chronic obstructive pulmonary disease with (acute) exacerbation (principal); R00.0 Tachycardia, unspecified; I10 Essential (primary) hypertension; E11.9 Type 2 diabetes mellitus without complications; E78.00 Pure hypercholesterolemia, unspecified; J44.9 Chronic obstructive pulmonary disease, unspecified; F17.210 Nicotine dependence, cigarettes, uncomplicated; Z20.822 Contact with and (suspected) exposure to COVID-19; Z79.4 Long term (current) use of insulin; Z79.899 Other long term (current) drug therapy
CPT/HCPCS: 36415; 71045; 80053; 83880; 84484; 85025; 93005; 96374; J2930; J7611; J7620; U0002

== ENCOUNTER 2022-03-24 14:54 | Emergency (ER) | payer OTHER ==
[2022-03-24] MEDS ORDERED: Iopamidol 370 76% 100 ML VIAL FS ONE (14:55)
[2022-03-24] MEDS ORDERED: Morphine 4 MG/ML VIAL ONE (16:03)
[2022-03-24] MEDS ORDERED: Ondansetron PF 4 MG/2 ML Vial ONE (16:03)
[2022-03-24 16:09] LABS: #Basophils 0.1 thou/uL (0.0-0.2); #Eosinphils 0.2 thou/uL (0.0-0.7); #Lymphocytes 3.3 thou/uL (1.20-3.40); #Monocytes 0.8 thou/uL (0.11-0.59); #Neutrophils 7.5 thou/uL (1.40-6.50); %Basophils 0.9 % (0.0-1.0); %Eosinophils 1.7 % (0.0-10.0); %Lymphocytes 27.8 % (21.0-51.0); %Monocytes 6.7 % (0.0-10.0); %Neutrophils 62.9 % (42.0-75.0); Hemoglobin 18.2 g/dL (12.0-16.0); Mean Corpuscular HGB CONC 34.1 g/dL (32.0-36.0); Mean Corpuscular Hemoglobin 32.3 pg (27.0-31.0); Mean Corpuscular Volume 94.7 fL (78.0-98.0); Mean Platelet Volume 7.8 fL (7.4-10.4); Platelet Count 237 thou/uL (130-400); RBC Distribution Width 13.3 % (11.5-14.5); Red Blood Cell (RBC) Count 5.65 mill/uL (4.20-5.40); White Blood Cell (WBC) Count 11.9 thou/uL (4.8-10.8)
[2022-03-24 16:21] LABS: ALT (SGPT) 32 U/L (8-55); AST (SGOT) 21 U/L (5-34); Albumin 3.4 g/dL (3.5-5.0); Alkaline Phosphatase 60 U/L (40-110); Anion Gap 17 mmol/L (10-20); BUN (Urea Nitrogen) 9 mg/dL (7.0-18.7); Bilirubin, Total 0.5 mg/dL (0.2-1.2); Calc. Creatinine Clearance 0 mL/min (70-130); Calcium 9.1 mg/dL (7.8-10.44); Carbon Dioxide 28 mmol/L (22-29); Chloride 99 mmol/L (98-107); Globulin 3.9 g/dL (2.4-3.5); Glucose 203 mg/dL (70-105); Lipase 40 U/L (8-78); Magnesium 1.3 mg/dL (1.6-2.6); Potassium 3.8 mmol/L (3.5-5.1); Protein, Total 7.3 g/dL (6.0-8.3); Sodium 140 mmol/L (136-145)
[2022-03-24] MEDS ORDERED: Magnesium 2 GM/50 ML BAG (IN WATER) ONE (16:53)
[2022-03-24 17:24] LABS: SARS-CoV-2 NAA Rapid Test Not Detected (NotDetected)
[2022-03-24] MEDS ORDERED: Doxycycline 100 MG CAP ONE (18:20)
[2022-03-24 19:42] LABS: Phosphorus 3.2 mg/dL (2.3-4.7)
[2022-03-25 16:06] LABS: Base Excess-Venous 3.1 mmol/L (-2.0 to 3.0); Bicarbonate (HCO3v) 28.9 mmol/L (22.0-28.0); CO2 Tension (PvCO2) 46.3 mmHg (42.0-51.0)
[2022-03-25 16:07] LABS: Calcium, Ionized 1.14 mmol/L (1.15-1.33); Chloride 99 mmol/L (98-107); Hemoglobin - Calc 19.1 g/dL (12.0-16.0); Potassium 3.7 mmol/L (3.5-5.1); Sodium 140 mmol/L (138-145); T. Carbon Dioxide 30.3 mmol/L (22.0-28.0); vO2 Saturation-calc 99.7 % (60.0-85.0)
== END 2022-03-24 18:25 | disposition home or self-care (01) ==
LOC: BURERS 14:54
DX: J90 Pleural effusion, not elsewhere classified (principal); R09.02 Hypoxemia; R00.0 Tachycardia, unspecified; I10 Essential (primary) hypertension; E11.9 Type 2 diabetes mellitus without complications; J44.9 Chronic obstructive pulmonary disease, unspecified; E78.00 Pure hypercholesterolemia, unspecified; F17.210 Nicotine dependence, cigarettes, uncomplicated; Z20.822 Contact with and (suspected) exposure to COVID-19
CPT/HCPCS: 71045; 71275; 80053; 82330; 82803; 83605; 83690; 83735; 83880; 84100; 84484; 85025; 85379; 87040; 93005; 96365; 96375; J2270; J2405; J3475; Q9967; U0002

== ENCOUNTER 2022-05-02 16:43 | Emergency (ER) | payer OTHER | END 2022-05-02 17:04 | disposition left against medical advice (07) | LOC: BURERS 16:43 | DX: Z53.21 Procedure and treatment not carried out due to patient leaving prior to being seen by health care provider (principal) ==

== ENCOUNTER 2022-05-04 14:01 | Emergency (ER) | payer OTHER ==
[2022-05-04 14:29] LABS: Bilirubin Negative (Negative); Blood, Urine Trace (Negative); Clarity Slightly Cloudy (Clear); Glucose, Urine (Dipstick) >=1000 mg/dL (Negative); Ketone, Urine Negative (Negative); Leukocyte Negative (Negative); Nitrite Negative (Negative); Protein, Urine (Dipstick) > or equal to 300 mg/dL (Neg-Trace); Specific Gravity, Urine 1.025 (1.005-1.030); Urobilinogen 0.2 mg/dL (Less than 2)
[2022-05-04 14:30] LABS: Specific Gravity 1.025 (1.002-1.036)
[2022-05-04 14:31] LABS: Pregnancy Test - Urine (BHCG) Negative (Negative); Pregu Control Background? CLEAR/WHITE (CLR/WHITE); Pregu Control Bar Appear? YES (CONTROL BAR)
[2022-05-04 14:35] LABS: Bacteria/HPF 2+ HPF (None Seen); WBC/HPF 0-3 HPF (0-3); Yeast-Budding 1+ HPF (None Seen)
[2022-05-04 14:36] LABS: Yeast-Hyphae Rare HPF (None Seen)
[2022-05-04] MEDS ORDERED: traMADol HCl 50 MG TAB ONE (14:45)
[2022-05-04 14:49] LABS: #Basophils 0.1 thou/uL (0.0-0.2); #Eosinphils 0.2 thou/uL (0.0-0.7); #Lymphocytes 2.4 thou/uL (1.20-3.40); #Monocytes 0.5 thou/uL (0.11-0.59); #Neutrophils 5.5 thou/uL (1.40-6.50); %Basophils 0.8 % (0.0-1.0); %Eosinophils 1.7 % (0.0-10.0); %Lymphocytes 28.3 % (21.0-51.0); %Monocytes 5.7 % (0.0-10.0); %Neutrophils 63.4 % (42.0-75.0); Mean Corpuscular HGB CONC 32.3 g/dL (32.0-36.0); Mean Corpuscular Hemoglobin 31.3 pg (27.0-31.0); Mean Corpuscular Volume 96.6 fL (78.0-98.0); Mean Platelet Volume 8.8 fL (7.4-10.4); Platelet Count 185 thou/uL (130-400); RBC Distribution Width 13.4 % (11.5-14.5); Red Blood Cell (RBC) Count 5.43 mill/uL (4.20-5.40); White Blood Cell (WBC) Count 8.6 thou/uL (4.8-10.8)
[2022-05-04 15:04] LABS: Anion Gap 16 mmol/L (10-20); BUN (Urea Nitrogen) 9 mg/dL (7.0-18.7); Calc. Creatinine Clearance 0 mL/min (70-130); Calcium 8.7 mg/dL (7.8-10.44); Carbon Dioxide 25 mmol/L (22-29); Chloride 101 mmol/L (98-107); Estimated GFR 96; Glucose 379 mg/dL (70-105); Potassium 4.3 mmol/L (3.5-5.1); Sodium 138 mmol/L (136-145)
== END 2022-05-04 16:37 | disposition home or self-care (01) ==
LOC: BURERS 14:01
DX: E11.65 Type 2 diabetes mellitus with hyperglycemia (principal); B37.3 Candidiasis of vulva and vagina; I10 Essential (primary) hypertension; J44.9 Chronic obstructive pulmonary disease, unspecified; F17.210 Nicotine dependence, cigarettes, uncomplicated
CPT/HCPCS: 36415; 80048; 81003; 81015; 81025; 85025; 99284

== ENCOUNTER 2022-05-20 10:36 | Emergency (ER) | payer OTHER ==
[2022-05-20] MEDS ORDERED: Clindamycin 150 MG CAP ONE (11:25)
== END 2022-05-20 11:29 | disposition home or self-care (01) ==
LOC: BURERS 10:36
DX: L02.31 Cutaneous abscess of buttock (principal); E11.9 Type 2 diabetes mellitus without complications; I10 Essential (primary) hypertension; J44.9 Chronic obstructive pulmonary disease, unspecified; F17.210 Nicotine dependence, cigarettes, uncomplicated
CPT/HCPCS: 10060

== ENCOUNTER 2022-09-21 13:43 | Emergency (ER) | payer OTHER | END 2022-09-21 14:13 | disposition home or self-care (01) | LOC: BURERS 13:43 | DX: T81.49XA Infection following a procedure, other surgical site, initial encounter (principal); J44.9 Chronic obstructive pulmonary disease, unspecified; E11.9 Type 2 diabetes mellitus without complications; F17.210 Nicotine dependence, cigarettes, uncomplicated | CPT/HCPCS: 87070; 87205; 99283 ==

== ENCOUNTER 2022-10-07 07:39 | Emergency (ER) | payer OTHER ==
[2022-10-07] MEDS ORDERED: Bacitracin 1 PK ONE (08:18)
== END 2022-10-07 08:23 | disposition home or self-care (01) ==
LOC: BURERS 07:39
DX: T81.49XA Infection following a procedure, other surgical site, initial encounter (principal); E11.9 Type 2 diabetes mellitus without complications; J44.9 Chronic obstructive pulmonary disease, unspecified; F17.210 Nicotine dependence, cigarettes, uncomplicated
CPT/HCPCS: 99283

== ENCOUNTER 2022-10-13 07:25 | Emergency (ER) | payer OTHER ==
[2022-10-13 07:54] LABS: Bilirubin Negative (Negative); Blood, Urine Trace (Negative); Clarity Slightly Cloudy (Clear); Glucose, Urine (Dipstick) Negative (Negative); Ketone, Urine Negative (Negative); Leukocyte Negative (Negative); Nitrite Negative (Negative); Protein, Urine (Dipstick) > or equal to 300 mg/dL (Neg-Trace); Urobilinogen 0.2 mg/dL (Less than 2)
[2022-10-13 08:00] LABS: Pregnancy Test - Urine (BHCG) Negative (Negative); Pregu Control Background? CLEAR/WHITE (CLR/WHITE); Pregu Control Bar Appear? YES (CONTROL BAR)
[2022-10-13 08:03] LABS: WBC/HPF None Seen HPF (0-3)
[2022-10-13 08:04] LABS: Bacteria/HPF 1+ HPF (None Seen); Yeast-Budding 1+ HPF (None Seen)
[2022-10-13] MEDS ORDERED: Nitrofurantoin Monohyd/M-Cryst 100 MG CAP ONE (08:22)
[2022-10-13] MEDS ORDERED: Acetaminophen 325 MG TAB ONE (08:22)
[2022-10-13] MEDS ORDERED: traMADol HCl 50 MG TAB ONE (08:22)
== END 2022-10-13 08:40 | disposition home or self-care (01) ==
LOC: BURERS 07:25
DX: N39.0 Urinary tract infection, site not specified (principal); E11.9 Type 2 diabetes mellitus without complications; J44.9 Chronic obstructive pulmonary disease, unspecified; F17.210 Nicotine dependence, cigarettes, uncomplicated
CPT/HCPCS: 81003; 81015; 81025; 99283

== ENCOUNTER 2022-10-19 11:05 | Emergency (ER) | payer OTHER ==
[2022-10-19 12:31] LABS: Band 3 % (5-11); Hemoglobin 14.8 g/dL (12.0-16.0); Lymphocytes 16 % (21-51); MDiff Complete? YES; Mean Corpuscular Hemoglobin 29.9 pg (27.0-31.0); Mean Corpuscular Volume 90.7 fl (78.0-98.0); Mean Platelet Volume 8.1 fL (7.4-10.4); Monocytes 5 % (0-10); Neutrophil 76 % (42-75); Platelet Count 378 10x3/uL (130-400); RBC Distribution Width 13.4 % (11.5-14.5); Red Blood Cell (RBC) Count 4.96 mill/uL (4.20-5.40); White Blood Cell (WBC) Count 14.2 10x3/uL (4.8-10.8)
[2022-10-19 12:34] LABS: ALT (SGPT) 20 U/L (8-55); AST (SGOT) 27 U/L (5-34); Albumin 3.1 g/dL (3.5-5.0); Alkaline Phosphatase 90 U/L (40-110); Anion Gap 19 mmol/L (10-20); BUN (Urea Nitrogen) 8 mg/dL (7.0-18.7); Bilirubin, Total 0.5 mg/dL (0.2-1.2); Calc. Creatinine Clearance 0 mL/min (70-130); Calcium 8.6 mg/dL (7.8-10.44); Carbon Dioxide 25 mmol/L (22-29); Chloride 92 mmol/L (98-107); Estimated GFR 75; Globulin 3.9 g/dL (2.4-3.5); Potassium 4.5 mmol/L (3.5-5.1); Sodium 131 mmol/L (136-145)
[2022-10-19 13:00] LABS: Glucose 437 mg/dL (70-105)
== END 2022-10-19 12:56 | disposition left against medical advice (07) ==
LOC: BURERS 11:05
DX: R06.02 Shortness of breath (principal); R06.00 Dyspnea, unspecified; R00.0 Tachycardia, unspecified; E11.65 Type 2 diabetes mellitus with hyperglycemia; J44.9 Chronic obstructive pulmonary disease, unspecified; F17.210 Nicotine dependence, cigarettes, uncomplicated
CPT/HCPCS: 36415; 71046; 80053; 83880; 84484; 85025; 93005

== ENCOUNTER 2022-10-20 14:47 | Emergency (ER) | payer OTHER ==
[2022-10-20 15:42] LABS: #Basophils 0.1 thou/uL (0.0-0.2); #Eosinphils 0.2 thou/uL (0.0-0.7); #Lymphocytes 2.4 thou/uL (1.20-3.40); #Monocytes 0.6 thou/uL (0.11-0.59); #Neutrophils 7.5 thou/uL (1.40-6.50); %Basophils 0.9 % (0.0-1.0); %Eosinophils 1.8 % (0.0-10.0); %Lymphocytes 21.9 % (21.0-51.0); %Monocytes 5.9 % (0.0-10.0); %Neutrophils 69.5 % (42.0-75.0); Hemoglobin 14.7 g/dL (12.0-16.0); Mean Corpuscular HGB CONC 32.5 g/dL (32.0-36.0); Mean Corpuscular Hemoglobin 29.6 pg (27.0-31.0); Mean Corpuscular Volume 91.1 fl (78.0-98.0); Mean Platelet Volume 7.3 fL (7.4-10.4); Platelet Count 375 10x3/uL (130-400); RBC Distribution Width 13.2 % (11.5-14.5); Red Blood Cell (RBC) Count 4.97 mill/uL (4.20-5.40); White Blood Cell (WBC) Count 10.8 10x3/uL (4.8-10.8)
[2022-10-20 15:58] LABS: ALT (SGPT) 18 U/L (8-55); AST (SGOT) 10 U/L (5-34); Albumin 3.1 g/dL (3.5-5.0); Alkaline Phosphatase 94 U/L (40-110); Anion Gap 18 mmol/L (10-20); BUN (Urea Nitrogen) 9 mg/dL (7.0-18.7); Bilirubin, Total 0.3 mg/dL (0.2-1.2); Calc. Creatinine Clearance 0 mL/min (70-130); Calcium 8.8 mg/dL (7.8-10.44); Carbon Dioxide 26 mmol/L (22-29); Chloride 94 mmol/L (98-107); Estimated GFR 74; Potassium 3.8 mmol/L (3.5-5.1); Protein, Total 7.1 g/dL (6.0-8.3); Sodium 134 mmol/L (136-145)
[2022-10-20] MEDS ORDERED: Ketorolac Tromethamine 30 MG/ML VIAL ONE (16:02)
[2022-10-20 16:08] LABS: Glucose 456 mg/dL (70-105)
[2022-10-20] MEDS ORDERED: Insulin Regular 300 UNITS/3 ML VIAL ONE (16:10)
== END 2022-10-20 19:39 | disposition short-term general hospital (02) ==
LOC: BURERS 14:47
DX: I31.39 Other pericardial effusion (noninflammatory) (principal); E11.65 Type 2 diabetes mellitus with hyperglycemia; J44.9 Chronic obstructive pulmonary disease, unspecified; F17.210 Nicotine dependence, cigarettes, uncomplicated
CPT/HCPCS: 36415; 36416; 71260; 80053; 83880; 84484; 85025; 93005; 94760; 96361; 96374; 96375; J1815; J1885; Q9967

== ENCOUNTER 2022-10-26 01:24 | Emergency (ER) | payer OTHER ==
[2022-10-26 02:13] LABS: #Basophils 0.2 thou/uL (0.0-0.2); #Eosinphils 0.7 thou/uL (0.0-0.7); #Lymphocytes 4.8 thou/uL (1.20-3.40); #Monocytes 1.3 thou/uL (0.11-0.59); #Neutrophils 9.8 thou/uL (1.40-6.50); %Eosinophils 4.1 % (0.0-10.0); %Lymphocytes 28.6 % (21.0-51.0); %Monocytes 7.6 % (0.0-10.0); %Neutrophils 58.7 % (42.0-75.0); Hemoglobin 16.9 g/dL (12.0-16.0); Mean Corpuscular Hemoglobin 30.1 pg (27.0-31.0); Mean Corpuscular Volume 91.1 fl (78.0-98.0); Mean Platelet Volume 7.6 fL (7.4-10.4); Platelet Count 473 10x3/uL (130-400); RBC Distribution Width 13.5 % (11.5-14.5); Red Blood Cell (RBC) Count 5.63 mill/uL (4.20-5.40); White Blood Cell (WBC) Count 16.7 10x3/uL (4.8-10.8)
[2022-10-26 02:29] LABS: ALT (SGPT) 19 U/L (8-55); AST (SGOT) 17 U/L (5-34); Albumin 3.4 g/dL (3.5-5.0); Alkaline Phosphatase 86 U/L (40-110); Anion Gap 20 mmol/L (10-20); BUN (Urea Nitrogen) 6 mg/dL (7.0-18.7); Bilirubin, Total 0.4 mg/dL (0.2-1.2); Calc. Creatinine Clearance 0 mL/min (70-130); Calcium 9.5 mg/dL (7.8-10.44); Carbon Dioxide 28 mmol/L (22-29); Chloride 97 mmol/L (98-107); Estimated GFR 73; Globulin 3.8 g/dL (2.4-3.5); Glucose 249 mg/dL (70-105); Potassium 4.3 mmol/L (3.5-5.1); Protein, Total 7.2 g/dL (6.0-8.3); Sodium 141 mmol/L (136-145)
[2022-10-26 02:38] LABS: Bilirubin Small (Negative); Blood, Urine Trace (Negative); Clarity Clear (Clear); Glucose, Urine (Dipstick) Negative (Negative); Ketone, Urine Negative (Negative); Leukocyte Negative (Negative); Nitrite Negative (Negative); Protein, Urine (Dipstick) > or equal to 300 mg/dL (Neg-Trace); Urobilinogen 0.2 mg/dL (Less than 2); pH, Urine 6.5 (5.0-9.0)
[2022-10-26 02:53] LABS: Bacteria/HPF Rare-Few HPF (None Seen); RBC/HPF 0-3 HPF (0-3); WBC/HPF 0-3 HPF (0-3)
== END 2022-10-26 03:00 | disposition home or self-care (01) ==
LOC: BURERS 01:24
DX: R06.02 Shortness of breath (principal); E86.0 Dehydration; E11.9 Type 2 diabetes mellitus without complications; F17.210 Nicotine dependence, cigarettes, uncomplicated; Z79.899 Other long term (current) drug therapy; Z79.4 Long term (current) use of insulin
CPT/HCPCS: 71045; 80053; 81003; 81015; 83880; 84484; 85025; 93005; 94760; 96360

== ENCOUNTER 2022-11-12 13:17 | Emergency (ER) | payer OTHER | END 2022-11-12 14:30 | disposition home or self-care (01) | LOC: BURERS 13:17 | DX: R11.10 Vomiting, unspecified (principal); E86.0 Dehydration; E11.43 Type 2 diabetes mellitus with diabetic autonomic (poly)neuropathy; K31.84 Gastroparesis; J44.9 Chronic obstructive pulmonary disease, unspecified; F17.210 Nicotine dependence, cigarettes, uncomplicated | CPT/HCPCS: 99283 ==

== ENCOUNTER → 2022-11-24 | Emergency (ER) | payer OTHER ==
[~2022-11-24] MED LIST changes: +Cefepime 2 GM VIAL ONE; +INSULIN REGULAR IN 0.9 % NACL 100 UNIT/100 ML BAG ONE; -Iopamidol 370 76% 100 ML VIAL ONE; +Ipratropium/Albuterol 3 ML NEB ONE
[2022-11-24 20:34] LABS: #Basophils 0.1 thou/uL (0.0-0.2); #Eosinphils 0.1 thou/uL (0.0-0.7); #Lymphocytes 2.7 thou/uL (1.20-3.40); #Monocytes 0.4 thou/uL (0.11-0.59); #Neutrophils 11.1 thou/uL (1.40-6.50); %Basophils 0.4 % (0.0-1.0); %Eosinophils 0.7 % (0.0-10.0); %Lymphocytes 18.7 % (21.0-51.0); %Neutrophils 77.2 % (42.0-75.0); Mean Corpuscular HGB CONC 34.1 g/dL (32.0-36.0); Mean Corpuscular Hemoglobin 30.2 pg (27.0-31.0); Mean Corpuscular Volume 88.6 fl (78.0-98.0); Mean Platelet Volume 7.9 fL (7.4-10.4); Platelet Count 291 10x3/uL (130-400); RBC Distribution Width 13.9 % (11.5-14.5); Red Blood Cell (RBC) Count 5.63 mill/uL (4.20-5.40); White Blood Cell (WBC) Count 14.3 10x3/uL (4.8-10.8)
[2022-11-24 20:49] LABS: ALT (SGPT) 21 U/L (8-55); AST (SGOT) 7 U/L (5-34); Albumin 3.5 g/dL (3.5-5.0); Alkaline Phosphatase 81 U/L (40-110); Anion Gap 17 mmol/L (10-20); BUN (Urea Nitrogen) 17 mg/dL (7.0-18.7); Bilirubin, Total 0.3 mg/dL (0.2-1.2); Calc. Creatinine Clearance 0 mL/min (70-130); Calcium 9.9 mg/dL (7.8-10.44); Carbon Dioxide 27 mmol/L (22-29); Chloride 96 mmol/L (98-107); Estimated GFR 102; Globulin 4.2 g/dL (2.4-3.5); Glucose 357 mg/dL (70-105); Potassium 4.1 mmol/L (3.5-5.1); Protein, Total 7.7 g/dL (6.0-8.3); Sodium 136 mmol/L (136-145)
[2022-11-24 22:58] LABS: Lactic Acid 2.1 mmol/L (0.5-2.2)
== END ==
LOC: BURERS 19:56
DX: J44.1 Chronic obstructive pulmonary disease with (acute) exacerbation (principal); E11.65 Type 2 diabetes mellitus with hyperglycemia; F17.210 Nicotine dependence, cigarettes, uncomplicated; Z79.899 Other long term (current) drug therapy
CPT/HCPCS: 36415; 36416; 71045; 71275; 80053; 83605; 83880; 84484; 85025; 87040; 93005; 94640; 96361; 96365; 96375; J0692; J1100; J1815; J2270; J7620; Q0162; Q9967

== ENCOUNTER 2022-12-09 22:08 | Emergency (ER) | payer OTHER | END 2022-12-09 23:45 | disposition home or self-care (01) | LOC: BURERS 22:08 | DX: S93.401A Sprain of unspecified ligament of right ankle, initial encounter (principal); E11.9 Type 2 diabetes mellitus without complications; K21.9 Gastro-esophageal reflux disease without esophagitis; F17.210 Nicotine dependence, cigarettes, uncomplicated; Z79.899 Other long term (current) drug therapy; J44.9 Chronic obstructive pulmonary disease, unspecified; X50.9XXA Other and unspecified overexertion or strenuous movements or postures, initial encounter ==

== ENCOUNTER 2022-12-15 11:53 | Emergency (ER) | payer OTHER ==
[2022-12-15] MEDS ORDERED: Ibuprofen 800 MG TAB ONE (12:19)
== END 2022-12-15 12:26 | disposition home or self-care (01) ==
LOC: BURERS 11:53
DX: S39.012A Strain of muscle, fascia and tendon of lower back, initial encounter (principal); E11.9 Type 2 diabetes mellitus without complications; J44.9 Chronic obstructive pulmonary disease, unspecified; E66.9 Obesity, unspecified; F17.210 Nicotine dependence, cigarettes, uncomplicated; X50.9XXA Other and unspecified overexertion or strenuous movements or postures, initial encounter
CPT/HCPCS: 99283

== ENCOUNTER 2022-12-20 15:47 | Emergency (ER) | payer OTHER ==
[2022-12-20] MEDS ORDERED: Ondansetron PF 4 MG/2 ML Vial ONE (15:57)
[2022-12-20] MEDS ORDERED: Morphine 4 MG/ML VIAL ONE ×2 (15:57→17:24)
[2022-12-20] MEDS ORDERED: Ketorolac Tromethamine 30 MG/ML VIAL ONE (15:57)
[2022-12-20 16:15] LABS: #Basophils 0.1 thou/uL (0.0-0.2); #Eosinphils 0.2 thou/uL (0.0-0.7); #Monocytes 0.4 thou/uL (0.11-0.59); #Neutrophils 7.4 thou/uL (1.40-6.50); %Basophils 0.8 % (0.0-1.0); %Eosinophils 1.6 % (0.0-10.0); %Lymphocytes 27.2 % (21.0-51.0); %Monocytes 3.4 % (0.0-10.0); %Neutrophils 66.9 % (42.0-75.0); Hemoglobin 17.6 g/dL (12.0-16.0); Mean Corpuscular HGB CONC 35.3 g/dL (32.0-36.0); Mean Corpuscular Hemoglobin 31.5 pg (27.0-31.0); Mean Corpuscular Volume 89.2 fl (78.0-98.0); Mean Platelet Volume 8.5 fL (7.4-10.4); Platelet Count 238 10x3/uL (130-400); RBC Distribution Width 14.8 % (11.5-14.5); Red Blood Cell (RBC) Count 5.58 mill/uL (4.20-5.40)
[2022-12-20 16:33] LABS: ALT (SGPT) 21 U/L (8-55); AST (SGOT) 12 U/L (5-34); Albumin 3.4 g/dL (3.5-5.0); Alkaline Phosphatase 80 U/L (40-110); Anion Gap 17 mmol/L (10-20); BUN (Urea Nitrogen) 13 mg/dL (7.0-18.7); Bilirubin, Total 0.2 mg/dL (0.2-1.2); Calc. Creatinine Clearance 0 mL/min (70-130); Calcium 9.1 mg/dL (7.8-10.44); Carbon Dioxide 25 mmol/L (22-29); Chloride 100 mmol/L (98-107); Estimated GFR 81; Globulin 3.5 g/dL (2.4-3.5); Potassium 4.5 mmol/L (3.5-5.1); Protein, Total 6.9 g/dL (6.0-8.3); Sodium 137 mmol/L (136-145)
[2022-12-20 16:35] LABS: Glucose 436 mg/dL (70-105)
[2022-12-20] MEDS ORDERED: Insulin Regular 300 UNITS/3 ML VIAL ONE (16:41)
== END 2022-12-20 17:52 | disposition home or self-care (01) ==
LOC: BURERS 15:47
DX: M54.50 Low back pain, unspecified (principal); E11.65 Type 2 diabetes mellitus with hyperglycemia; J44.9 Chronic obstructive pulmonary disease, unspecified; F17.200 Nicotine dependence, unspecified, uncomplicated
CPT/HCPCS: 36415; 80053; 85025; 96361; 96372; 96374; 96375; 96376; J1815; J1885; J2270; J2405

== ENCOUNTER 2023-01-14 10:45 | Outpatient (CLI) | payer OTHER | END 2023-01-14 10:46 | disposition home or self-care (01) | LOC: BURRAD 10:45 | PROVIDERS: ATTEND Physician Assistant | DX: M54.50 Low back pain, unspecified (principal); M47.816 Spondylosis without myelopathy or radiculopathy, lumbar region | CPT/HCPCS: 72100 ==

== ENCOUNTER 2023-01-29 16:01 | Emergency (ER) | payer OTHER ==
[~2023-01-29 16:01] MED LIST changes: -Cefepime 2 GM VIAL ONE; -INSULIN REGULAR IN 0.9 % NACL 100 UNIT/100 ML BAG ONE; +Iopamidol 370 76% 100 ML VIAL ONE; -Ipratropium/Albuterol 3 ML NEB ONE
[2023-01-29 17:46] LABS: #Basophils 0.1 thou/uL (0.0-0.2); #Eosinphils 0.2 thou/uL (0.0-0.7); #Lymphocytes 3.5 thou/uL (1.20-3.40); #Monocytes 0.7 thou/uL (0.11-0.59); %Basophils 0.7 % (0.0-1.0); %Eosinophils 1.6 % (0.0-10.0); %Neutrophils 66.6 % (42.0-75.0); Hemoglobin 19.1 g/dL (12.0-16.0); Mean Corpuscular HGB CONC 32.3 g/dL (32.0-36.0); Mean Corpuscular Hemoglobin 30.1 pg (27.0-31.0); Mean Corpuscular Volume 93.1 fl (78.0-98.0); Mean Platelet Volume 8.4 fL (7.4-10.4); Platelet Count 250 10x3/uL (130-400); RBC Distribution Width 13.2 % (11.5-14.5); Red Blood Cell (RBC) Count 6.33 mill/uL (4.20-5.40); White Blood Cell (WBC) Count 13.5 10x3/uL (4.8-10.8)
[2023-01-29] MEDS ORDERED: Morphine 4 MG/ML VIAL ONE (18:00)
[2023-01-29] MEDS ORDERED: Ondansetron PF 4 MG/2 ML Vial ONE (18:00)
[2023-01-29 18:04] LABS: ALT (SGPT) 22 U/L (8-55); AST (SGOT) 11 U/L (5-34); Alkaline Phosphatase 74 U/L (40-110); Anion Gap 15 mmol/L (10-20); BUN (Urea Nitrogen) 16 mg/dL (7.0-18.7); Bilirubin, Total 0.4 mg/dL (0.2-1.2); Calc. Creatinine Clearance 0 mL/min (70-130); Calcium 9.7 mg/dL (7.8-10.44); Carbon Dioxide 25 mmol/L (22-29); Chloride 97 mmol/L (98-107); Estimated GFR 88; Globulin 4.3 g/dL (2.4-3.5); Glucose 333 mg/dL (70-105); Potassium 4.3 mmol/L (3.5-5.1); Protein, Total 8.3 g/dL (6.0-8.3); Sodium 133 mmol/L (136-145)
[2023-01-29 20:51] LABS: Troponin I Less than 0.010 ng/mL (< 0.028)
== END 2023-01-29 21:42 | disposition home or self-care (01) ==
LOC: BURERS 16:01
DX: R00.0 Tachycardia, unspecified (principal); D72.829 Elevated white blood cell count, unspecified; E11.9 Type 2 diabetes mellitus without complications; J44.9 Chronic obstructive pulmonary disease, unspecified; F17.210 Nicotine dependence, cigarettes, uncomplicated
CPT/HCPCS: 36415; 71045; 71275; 80053; 83605; 83880; 84443; 84484; 85025; 93005; 96374; 96375; J2270; J2405; Q9967

== ENCOUNTER 2023-02-10 13:22 | Outpatient (CLI) | payer OTHER | END 2023-02-10 13:23 | disposition home or self-care (01) | LOC: BURRAD 13:22 | PROVIDERS: ATTEND Physician Assistant | DX: M25.562 Pain in left knee (principal); M25.552 Pain in left hip; M16.12 Unilateral primary osteoarthritis, left hip ==

== ENCOUNTER 2023-02-22 19:50 | Emergency (ER) | payer OTHER ==
[2023-02-22 20:27] LABS: #Basophils 0.1 thou/uL (0.0-0.2); #Eosinphils 0.2 thou/uL (0.0-0.7); #Lymphocytes 3.9 thou/uL (1.20-3.40); #Monocytes 0.6 thou/uL (0.11-0.59); #Neutrophils 6.3 thou/uL (1.40-6.50); %Basophils 0.9 % (0.0-1.0); %Eosinophils 2.2 % (0.0-10.0); %Monocytes 5.2 % (0.0-10.0); %Neutrophils 56.7 % (42.0-75.0); Hemoglobin 17.4 g/dL (12.0-16.0); Mean Corpuscular HGB CONC 34.3 g/dL (32.0-36.0); Mean Corpuscular Hemoglobin 31.6 pg (27.0-31.0); Mean Corpuscular Volume 92.1 fl (78.0-98.0); Mean Platelet Volume 7.9 fL (7.4-10.4); Platelet Count 214 10x3/uL (130-400); RBC Distribution Width 12.7 % (11.5-14.5); White Blood Cell (WBC) Count 11.2 10x3/uL (4.8-10.8)
[2023-02-22 20:34] LABS: Bilirubin Small (Negative); Blood, Urine Trace (Negative); Clarity Clear (Clear); Glucose, Urine (Dipstick) Negative (Negative); Ketone, Urine Trace mg/dL (Negative); Leukocyte Negative (Negative); Nitrite Negative (Negative); Protein, Urine (Dipstick) > or equal to 300 mg/dL (Neg-Trace); Urobilinogen 0.2 mg/dL (Less than 2); pH, Urine 5.5 (5.0-9.0)
[2023-02-22 20:35] LABS: Specific Gravity, Urine 1.032 (1.002-1.036)
[2023-02-22 20:40] LABS: Anion Gap 15 mmol/L (10-20); BUN (Urea Nitrogen) 18 mg/dL (7.0-18.7); CRP (Inflammatory) 1.88 mg/dL (= or < 0.5); Calc. Creatinine Clearance 0 mL/min (70-130); Calcium 9.4 mg/dL (7.8-10.44); Carbon Dioxide 24 mmol/L (22-29); Chloride 101 mmol/L (98-107); Estimated GFR 88; Glucose 302 mg/dL (70-105); Sodium 136 mmol/L (136-145)
[2023-02-22 20:41] LABS: RBC/HPF 0-3 HPF (0-3); Squamous Epithelial 0-3 HPF (0-3); WBC/HPF None Seen HPF (0-3)
[2023-02-22 20:42] LABS: Mucous/LPF 3+ LPF (<2+)
[2023-02-22 20:45] LABS: Bacteria/HPF Rare-Few HPF (None Seen)
[2023-02-22 20:47] LABS: Amphetamine Not Detected (NotDetected); Barbiturates Screen Not Detected (NotDetected); Benzodiazepine Screen Not Detected (NotDetected); Cocaine Metabolite Screen Not Detected (NotDetected); Methadone Not Detected (NotDetected); Methamphetamine Not Detected (NotDetected); Opiate Screen Not Detected (NotDetected); Oxycodone Screen Not Detected (NotDetected); Phencyclidine (PCP) Not Detected (NotDetected); THC/Cannabinoid Screen Detected (NotDetected); Tricyclic Screen Detected (NotDetected)
[2023-02-22] MEDS ORDERED: Ketorolac Tromethamine 30 MG/ML VIAL ONE (20:59)
[2023-02-22] MEDS ORDERED: Bacitracin 1 PK ONE (20:59)
[2023-02-22] MEDS ORDERED: Clindamycin/D5W 900 mg/50 ml Premix Bag ONE (20:59)
== END 2023-02-22 22:05 | disposition home or self-care (01) ==
LOC: BURERS 19:50
DX: E86.0 Dehydration (principal); L02.214 Cutaneous abscess of groin; E11.65 Type 2 diabetes mellitus with hyperglycemia; K21.9 Gastro-esophageal reflux disease without esophagitis; J44.9 Chronic obstructive pulmonary disease, unspecified; F17.200 Nicotine dependence, unspecified, uncomplicated; Z79.899 Other long term (current) drug therapy
CPT/HCPCS: 70450; 80048; 80306; 81003; 81015; 83605; 85025; 86140; 96365; 96375; J1885; J3490

== ENCOUNTER 2023-04-20 12:17 | Emergency (ER) | payer OTHER ==
[2023-04-20] MEDS ORDERED: Ondansetron PF 4 MG/2 ML Vial ONE (12:45)
[2023-04-20] MEDS ORDERED: Morphine 4 MG/ML VIAL ONE (12:45)
[2023-04-20 12:48] LABS: #Basophils 0.1 thou/uL (0.0-0.2); #Eosinphils 0.2 thou/uL (0.0-0.7); #Lymphocytes 3.6 thou/uL (1.20-3.40); #Monocytes 0.5 thou/uL (0.11-0.59); #Neutrophils 7.6 thou/uL (1.40-6.50); %Basophils 0.8 % (0.0-1.0); %Eosinophils 1.4 % (0.0-10.0); %Lymphocytes 29.8 % (21.0-51.0); Hemoglobin 16.9 g/dL (12.0-16.0); Mean Corpuscular HGB CONC 34.7 g/dL (32.0-36.0); Mean Corpuscular Hemoglobin 31.9 pg (27.0-31.0); Mean Corpuscular Volume 91.9 fl (78.0-98.0); Mean Platelet Volume 8.9 fL (7.4-10.4); Platelet Count 237 10x3/uL (130-400); RBC Distribution Width 12.7 % (11.5-14.5); White Blood Cell (WBC) Count 11.9 10x3/uL (4.8-10.8)
[2023-04-20] MEDS ORDERED: Iopamidol 370 76% 100 ML VIAL ONE (13:00)
[2023-04-20 13:10] LABS: ALT (SGPT) 25 U/L (8-55); AST (SGOT) 17 U/L (5-34); Albumin 3.7 g/dL (3.5-5.0); Alkaline Phosphatase 71 U/L (40-110); Anion Gap 17 mmol/L (10-20); BUN (Urea Nitrogen) 17 mg/dL (7.0-18.7); Bilirubin, Total 0.4 mg/dL (0.2-1.2); Calc. Creatinine Clearance 0 mL/min (70-130); Calcium 9.4 mg/dL (7.8-10.44); Carbon Dioxide 26 mmol/L (22-29); Chloride 99 mmol/L (98-107); Estimated GFR 93; Globulin 3.8 g/dL (2.4-3.5); Glucose 270 mg/dL (70-105); Lipase 38 U/L (8-78); Potassium 4.2 mmol/L (3.5-5.1); Protein, Total 7.5 g/dL (6.0-8.3); Sodium 138 mmol/L (136-145)
[2023-04-20 13:55] LABS: Bilirubin Negative (Negative); Blood, Urine Trace (Negative); Clarity Cloudy (Clear); Glucose, Urine (Dipstick) Negative (Negative); Ketone, Urine Negative (Negative); Leukocyte Negative (Negative); Nitrite Negative (Negative); Protein, Urine (Dipstick) 100 mg/dL (Neg-Trace); Urobilinogen 0.2 mg/dL (Less than 2)
[2023-04-20 13:59] LABS: Bacteria/HPF 2+ HPF (None Seen); CAUTI Indications for Culture Pelvic or flank pain; RBC/HPF 0-3 HPF (0-3); WBC/HPF 0-3 HPF (0-3)
[2023-04-20 14:00] LABS: Urine Culture Reflex No No
[2023-04-20 14:05] LABS: Amphetamine Not Detected (NotDetected); Barbiturates Screen Not Detected (NotDetected); Benzodiazepine Screen Not Detected (NotDetected); Cocaine Metabolite Screen Not Detected (NotDetected); Methadone Not Detected (NotDetected); Methamphetamine Not Detected (NotDetected); Opiate Screen Detected (NotDetected); Oxycodone Screen Not Detected (NotDetected); Phencyclidine (PCP) Not Detected (NotDetected); THC/Cannabinoid Screen Detected (NotDetected); Tricyclic Screen Detected (NotDetected)
== END 2023-04-20 14:50 | disposition home or self-care (01) ==
LOC: BURERS 12:17
DX: J44.1 Chronic obstructive pulmonary disease with (acute) exacerbation (principal); E86.0 Dehydration; K21.9 Gastro-esophageal reflux disease without esophagitis; F17.210 Nicotine dependence, cigarettes, uncomplicated
CPT/HCPCS: 36416; 71275; 80053; 80306; 81001; 83605; 83690; 83880; 84484; 85025; 93005; 96361; 96374; 96375; 36415-59; J2270; J2405; Q9967

== ENCOUNTER 2023-11-22 12:11 | Emergency (ER) | payer OTHER | END 2023-11-22 13:54 | disposition home or self-care (01) | LOC: BURERS 12:11 | DX: M54.50 Low back pain, unspecified (principal); E11.9 Type 2 diabetes mellitus without complications; I10 Essential (primary) hypertension; F17.210 Nicotine dependence, cigarettes, uncomplicated | CPT/HCPCS: 99283 ==

== ENCOUNTER 2023-11-29 00:44 | Emergency (ER) | payer OTHER | END 2023-11-29 01:49 | disposition home or self-care (01) | LOC: BURERS 00:44 | DX: M54.6 Pain in thoracic spine (principal); J44.9 Chronic obstructive pulmonary disease, unspecified; E11.9 Type 2 diabetes mellitus without complications; I10 Essential (primary) hypertension; E66.9 Obesity, unspecified; F17.210 Nicotine dependence, cigarettes, uncomplicated; W22.8XXA Striking against or struck by other objects, initial encounter | CPT/HCPCS: 99283 ==

== ENCOUNTER 2023-12-11 16:20 | Emergency (ER) | payer OTHER ==
[2023-12-11 16:45] LABS: #Lymphocytes 2.4 thou/uL (1.20-3.40); #Monocytes 0.5 thou/uL (0.11-0.59); #Neutrophils 11.5 thou/uL (1.40-6.50); %Basophils 0.3 % (0.0-1.0); %Eosinophils 0.2 % (0.0-10.0); %Lymphocytes 16.8 % (21.0-51.0); %Monocytes 3.5 % (0.0-10.0); %Neutrophils 79.2 % (42.0-75.0); Hematocrit 50.4 % (36.0-47.0); Hemoglobin 17.6 g/dL (12.0-16.0); Mean Corpuscular HGB CONC 34.9 g/dL (32.0-36.0); Mean Corpuscular Hemoglobin 31.9 pg (27.0-31.0); Mean Corpuscular Volume 91.3 fl (78.0-98.0); Mean Platelet Volume 7.3 fL (7.4-10.4); Platelet Count 289 10x3/uL (130-400); RBC Distribution Width 12.9 % (11.5-14.5); Red Blood Cell (RBC) Count 5.52 mill/uL (4.20-5.40); White Blood Cell (WBC) Count 14.5 10x3/uL (4.8-10.8)
[2023-12-11] MEDS ORDERED: Morphine 2 MG/ML VIAL ONE (16:45)
[2023-12-11 16:52] LABS: Bilirubin Negative (Negative); Blood, Urine Trace (Negative); Clarity Cloudy (Clear); Glucose, Urine (Dipstick) 500 mg/dL (Negative); Ketone, Urine Negative (Negative); Leukocyte Negative (Negative); Nitrite Negative (Negative); Protein, Urine (Dipstick) 100 mg/dL (Neg-Trace); Specific Gravity, Urine 1.015 (1.005-1.030); Urobilinogen 0.2 mg/dL (Less than 2); pH, Urine 5.5 (5.0-9.0)
[2023-12-11 16:55] LABS: Pregnancy Test - Urine (BHCG) Negative (Negative); Pregu Control Background? CLEAR/WHITE (CLR/WHITE); Pregu Control Bar Appear? YES (CONTROL BAR); Specific Gravity 1.015 (1.002-1.036)
[2023-12-11 16:57] LABS: Base Excess-Venous -0.5 mmol/L (-2.0 to 3.0); Bicarbonate (HCO3v) 24.5 mmol/L (22.0-28.0); CO2 Tension (PvCO2) 40.6 mmHg (42.0-51.0); Calcium, Ionized 1.17 mmol/L (1.15-1.33); Chloride 102 mmol/L (98-107); Hemoglobin - Calc 18.5 g/dL (12.0-16.0); Potassium 4.5 mmol/L (3.5-5.1); Sodium 137 mmol/L (138-145); T. Carbon Dioxide 25.8 mmol/L (22.0-28.0); vO2 Saturation-calc 83.1 % (60.0-85.0)
[2023-12-11 16:58] LABS: Bacteria/HPF 1+ HPF (None Seen); CAUTI Indications for Culture Dysuria,urgency,freq; RBC/HPF 0-3 HPF (0-3); WBC/HPF 0-3 HPF (0-3)
[2023-12-11 16:59] LABS: Urine Culture Reflex No No; Yeast-Budding 2+ HPF (None Seen); Yeast-Hyphae 1+ HPF (None Seen)
[2023-12-11 17:04] LABS: ALT (SGPT) 32 U/L (8-55); AST (SGOT) 15 U/L (5-34); Albumin 3.7 g/dL (3.5-5.0); Alkaline Phosphatase 64 U/L (40-110); Anion Gap 18 mmol/L (10-20); BUN (Urea Nitrogen) 20 mg/dL (7.0-18.7); Bilirubin, Total 0.3 mg/dL (0.2-1.2); Calc. Creatinine Clearance 0 mL/min (70-130); Calcium 9.5 mg/dL (7.8-10.44); Carbon Dioxide 21 mmol/L (22-29); Chloride 100 mmol/L (98-107); Estimated GFR 81; Globulin 3.4 g/dL (2.4-3.5); Magnesium 1.5 mg/dL (1.6-2.6); Potassium 4.5 mmol/L (3.5-5.1); Protein, Total 7.1 g/dL (6.0-8.3); Sodium 134 mmol/L (136-145)
[2023-12-11 17:05] LABS: Critical Call Chemistry nur.kap@1701; Glucose 427 mg/dL (70-105)
== END 2023-12-11 18:20 | disposition home or self-care (01) ==
LOC: BURERS 16:20
DX: M54.6 Pain in thoracic spine (principal); G89.29 Other chronic pain; E11.65 Type 2 diabetes mellitus with hyperglycemia; I10 Essential (primary) hypertension; F17.210 Nicotine dependence, cigarettes, uncomplicated; J44.89 Other specified chronic obstructive pulmonary disease; W19.XXXA Unspecified fall, initial encounter; Z79.4 Long term (current) use of insulin; Z79.899 Other long term (current) drug therapy
CPT/HCPCS: 36416; 72110; 80053; 81001; 81025; 82330; 82803; 83735; 85025; 96361; 96374; J2272

== ENCOUNTER 2023-12-22 14:23 | Emergency (ER) | payer OTHER ==
[2023-12-22] MEDS ORDERED: Metoclopramide HCl 10 MG (2 mL) VIAL ONE (15:55)
[2023-12-22 17:08] LABS: Influenza A by NAA Not Detected (NotDetected); Influenza B by NAA Not Detected (NotDetected); SARS-CoV-2 NAA Rapid Test Not Detected (NotDetected)
== END 2023-12-22 16:32 | disposition home or self-care (01) ==
LOC: BURERS 14:23
DX: J02.9 Acute pharyngitis, unspecified (principal); R06.00 Dyspnea, unspecified; E11.9 Type 2 diabetes mellitus without complications; I10 Essential (primary) hypertension; F17.210 Nicotine dependence, cigarettes, uncomplicated; J44.9 Chronic obstructive pulmonary disease, unspecified
CPT/HCPCS: 87081; 87430; 96374; J2765

== ENCOUNTER 2023-12-25 15:50 | Emergency (ER) | payer OTHER | END 2023-12-25 16:58 | disposition home or self-care (01) | LOC: BURERS 15:50 | DX: M25.552 Pain in left hip (principal); M25.572 Pain in left ankle and joints of left foot; J44.9 Chronic obstructive pulmonary disease, unspecified; E11.9 Type 2 diabetes mellitus without complications; F17.210 Nicotine dependence, cigarettes, uncomplicated; W19.XXXA Unspecified fall, initial encounter ==

== ENCOUNTER 2024-03-04 16:23 | Emergency (ER) | payer OTHER ==
[2024-03-04] MEDS ORDERED: Clindamycin 150 MG CAP ONE (16:54)
== END 2024-03-04 16:59 | disposition home or self-care (01) ==
LOC: BURERS 16:23
DX: L03.311 Cellulitis of abdominal wall (principal); J44.9 Chronic obstructive pulmonary disease, unspecified; E11.9 Type 2 diabetes mellitus without complications; I10 Essential (primary) hypertension; F17.210 Nicotine dependence, cigarettes, uncomplicated; Z79.4 Long term (current) use of insulin; Z79.899 Other long term (current) drug therapy
CPT/HCPCS: 99283

== ENCOUNTER 2024-03-09 22:52 | Emergency (ER) | payer OTHER ==
[2024-03-09 23:23] LABS: #Basophils 0.1 thou/uL (0.0-0.2); #Eosinphils 0.2 thou/uL (0.0-0.7); #Lymphocytes 4.6 thou/uL (1.20-3.40); #Monocytes 0.7 thou/uL (0.11-0.59); #Neutrophils 7.4 thou/uL (1.40-6.50); %Eosinophils 1.8 % (0.0-10.0); %Lymphocytes 35.3 % (21.0-51.0); %Monocytes 5.2 % (0.0-10.0); %Neutrophils 56.7 % (42.0-75.0); Hematocrit 53.4 % (36.0-47.0); Hemoglobin 17.9 g/dL (12.0-16.0); Mean Corpuscular HGB CONC 33.6 g/dL (32.0-36.0); Mean Corpuscular Hemoglobin 30.9 pg (27.0-31.0); Mean Corpuscular Volume 92.1 fl (78.0-98.0); Mean Platelet Volume 7.5 fL (7.4-10.4); Platelet Count 246 10x3/uL (130-400); RBC Distribution Width 12.9 % (11.5-14.5); White Blood Cell (WBC) Count 13.1 10x3/uL (4.8-10.8)
[2024-03-09 23:34] LABS: Prothrombin Time 13.4 sec (12.0-14.7)
[2024-03-09 23:37] LABS: D-Dimer Test 0.69 mcg/mL (0.27-0.43)
[2024-03-09 23:41] LABS: Acetaminophen Less than 10 mcg/mL (10.0-30.0); Alcohol Less than 10.0 mg/dL (Less than 10); Salicylate Less than 8.0 mg/dL (15.0-30.0)
[2024-03-09 23:43] LABS: Anion Gap 14 mmol/L (10-20); BUN (Urea Nitrogen) 14 mg/dL (7.0-18.7); Carbon Dioxide 24 mmol/L (22-29); Chloride 102 mmol/L (98-107); Potassium 3.8 mmol/L (3.5-5.1); Sodium 136 mmol/L (136-145)
[2024-03-09 23:44] LABS: ALT (SGPT) 21 U/L (8-55); AST (SGOT) 13 U/L (5-34); Albumin 3.4 g/dL (3.5-5.0); Alkaline Phosphatase 63 U/L (40-110); Bilirubin, Total 0.2 mg/dL (0.2-1.2); Calc. Creatinine Clearance 0 mL/min (70-130); Calcium 9.1 mg/dL (7.8-10.44); Estimated GFR 104; Globulin 3.6 g/dL (2.4-3.5); Glucose 112 mg/dL (70-105); Troponin I 0.014 ng/mL (< 0.028)
[2024-03-10 00:01] LABS: Bilirubin Negative (Negative); Blood, Urine Small (Negative); Clarity Clear (Clear); Glucose, Urine (Dipstick) 500 mg/dL (Negative); Ketone, Urine Negative (Negative); Leukocyte Negative (Negative); Nitrite Negative (Negative); Protein, Urine (Dipstick) > or equal to 300 mg/dL (Neg-Trace); Urobilinogen 0.2 mg/dL (Less than 2)
[2024-03-10 00:02] LABS: Bacteria/HPF 1+ HPF (None Seen); CAUTI Indications for Culture Alt mental st,lethar; RBC/HPF 0-3 HPF (0-3); Specific Gravity, Urine 1.026 (1.002-1.036); Transitional Epithelial 0-3 HPF (None Seen); Yeast-Budding 1+ HPF (None Seen)
[2024-03-10 00:04] LABS: Urine Culture Reflex No No
[2024-03-10 00:14] LABS: Amphetamine Not Detected (NotDetected); Barbiturates Screen Not Detected (NotDetected); Benzodiazepine Screen Not Detected (NotDetected); Cocaine Metabolite Screen Not Detected (NotDetected); Methadone Not Detected (NotDetected); Methamphetamine Not Detected (NotDetected); Opiate Screen Not Detected (NotDetected); Oxycodone Screen Not Detected (NotDetected); Phencyclidine (PCP) Not Detected (NotDetected); THC/Cannabinoid Screen Detected (NotDetected); Tricyclic Screen Not Detected (NotDetected)
== END 2024-03-10 01:07 | disposition home or self-care (01) ==
LOC: BURERS 22:52
DX: R07.9 Chest pain, unspecified (principal); J44.9 Chronic obstructive pulmonary disease, unspecified; E11.9 Type 2 diabetes mellitus without complications; I10 Essential (primary) hypertension; F17.210 Nicotine dependence, cigarettes, uncomplicated
CPT/HCPCS: 36415; 71275; 80053; 80306; 80307; 81001; 83605; 83880; 84484; 85025; 85379; 85610; 85730; 87040; 93005; 96360; Q9967

== ENCOUNTER 2024-03-28 14:42 | Emergency (ER) | payer OTHER ==
[2024-03-28 15:20] LABS: Bilirubin Negative (Negative); Blood, Urine Small (Negative); Glucose, Urine (Dipstick) >=1000 mg/dL (Negative); Ketone, Urine Negative (Negative); Leukocyte Negative (Negative); Nitrite Negative (Negative); Protein, Urine (Dipstick) 100 mg/dL (Neg-Trace); Urobilinogen 0.2 mg/dL (Less than 2)
[2024-03-28 15:22] LABS: #Basophils 0.1 thou/uL (0.0-0.2); #Eosinphils 0.1 thou/uL (0.0-0.7); #Lymphocytes 3.2 thou/uL (1.20-3.40); #Monocytes 0.6 thou/uL (0.11-0.59); #Neutrophils 8.1 thou/uL (1.40-6.50); %Basophils 0.8 % (0.0-1.0); %Eosinophils 1.1 % (0.0-10.0); %Lymphocytes 26.3 % (21.0-51.0); %Monocytes 4.8 % (0.0-10.0); %Neutrophils 67.1 % (42.0-75.0); Hematocrit 55.1 % (36.0-47.0); Hemoglobin 18.2 g/dL (12.0-16.0); Mean Corpuscular HGB CONC 33.1 g/dL (32.0-36.0); Mean Corpuscular Hemoglobin 30.5 pg (27.0-31.0); Mean Corpuscular Volume 92.2 fl (78.0-98.0); Mean Platelet Volume 7.4 fL (7.4-10.4); Platelet Count 265 10x3/uL (130-400); RBC Distribution Width 13.2 % (11.5-14.5); Red Blood Cell (RBC) Count 5.98 mill/uL (4.20-5.40); White Blood Cell (WBC) Count 12.1 10x3/uL (4.8-10.8)
[2024-03-28 15:24] LABS: Clarity Hazy (Clear)
[2024-03-28 15:27] LABS: CAUTI Indications for Culture Dysuria,urgency,freq; WBC/HPF None Seen HPF (0-3)
[2024-03-28 15:28] LABS: Bacteria/HPF Rare-Few HPF (None Seen); Yeast-Budding 1+ HPF (None Seen)
[2024-03-28 15:29] LABS: Urine Culture Reflex No No
[2024-03-28] MEDS ORDERED: Insulin Regular 300 UNITS/3 ML VIAL ONE (15:33)
[2024-03-28 15:35] LABS: ALT (SGPT) 26 U/L (8-55); AST (SGOT) 16 U/L (5-34); Albumin 3.5 g/dL (3.5-5.0); Alkaline Phosphatase 74 U/L (40-110); Anion Gap 16 mmol/L (10-20); BUN (Urea Nitrogen) 10 mg/dL (7.0-18.7); Bilirubin, Total 0.3 mg/dL (0.2-1.2); Calc. Creatinine Clearance 0 mL/min (70-130); Calcium 9.2 mg/dL (7.8-10.44); Carbon Dioxide 26 mmol/L (22-29); Chloride 99 mmol/L (98-107); Estimated GFR 95; Globulin 3.9 g/dL (2.4-3.5); Glucose 252 mg/dL (70-105); Potassium 4.1 mmol/L (3.5-5.1); Protein, Total 7.4 g/dL (6.0-8.3); Sodium 137 mmol/L (136-145)
== END 2024-03-28 16:22 | disposition home or self-care (01) ==
LOC: BURERS 14:42
DX: E11.65 Type 2 diabetes mellitus with hyperglycemia (principal); I10 Essential (primary) hypertension; F17.210 Nicotine dependence, cigarettes, uncomplicated
CPT/HCPCS: 36416; 80053; 81001; 85025; 99284; 36415-59; J1815

== ENCOUNTER 2024-06-10 09:14 | Emergency (ER) | payer OTHER | END 2024-06-10 09:43 | disposition home or self-care (01) | LOC: BURERS 09:14 | DX: L02.214 Cutaneous abscess of groin (principal); B37.2 Candidiasis of skin and nail; I10 Essential (primary) hypertension; E11.9 Type 2 diabetes mellitus without complications; J44.89 Other specified chronic obstructive pulmonary disease; F17.210 Nicotine dependence, cigarettes, uncomplicated; E66.9 Obesity, unspecified | CPT/HCPCS: 99282 ==

== ENCOUNTER 2024-06-17 20:37 | Emergency (ER) | payer OTHER | END 2024-06-17 21:11 | disposition home or self-care (01) | LOC: BURERS 20:37 | DX: L73.2 Hidradenitis suppurativa (principal); I10 Essential (primary) hypertension; E11.9 Type 2 diabetes mellitus without complications; J44.89 Other specified chronic obstructive pulmonary disease; F17.210 Nicotine dependence, cigarettes, uncomplicated; E28.2 Polycystic ovarian syndrome | CPT/HCPCS: 99283 ==

== ENCOUNTER 2024-06-22 21:44 | Emergency (ER) | payer OTHER ==
[2024-06-22] MEDS ORDERED: Clindamycin 150 MG CAP ONE (22:11)
[2024-06-22] MEDS ORDERED: Sulfameth/Trimethoprim DS 800-160mg TAB ONE (22:12)
[2024-06-22] MEDS ORDERED: traMADol HCl 50 MG TAB ONE (22:13)
== END 2024-06-22 22:29 | disposition home or self-care (01) ==
LOC: BURERS 21:44
DX: L73.2 Hidradenitis suppurativa (principal); E11.9 Type 2 diabetes mellitus without complications; I10 Essential (primary) hypertension; J44.9 Chronic obstructive pulmonary disease, unspecified; R00.0 Tachycardia, unspecified; K50.90 Crohn's disease, unspecified, without complications; F17.210 Nicotine dependence, cigarettes, uncomplicated
CPT/HCPCS: 99283

== ENCOUNTER 2024-06-25 18:53 | Emergency (ER) | payer OTHER | END 2024-06-25 19:56 | disposition home or self-care (01) | LOC: BURERS 18:53 | DX: Z04.3 Encounter for examination and observation following other accident (principal); L84 Corns and callosities; R23.4 Changes in skin texture; I10 Essential (primary) hypertension; E11.9 Type 2 diabetes mellitus without complications; J44.89 Other specified chronic obstructive pulmonary disease; F17.210 Nicotine dependence, cigarettes, uncomplicated; W18.30XA Fall on same level, unspecified, initial encounter | CPT/HCPCS: 99283 ==

== ENCOUNTER 2024-06-27 17:29 | Emergency (ER) | payer OTHER ==
[2024-06-27] MEDS ORDERED: Morphine 4 MG/ML VIAL ONE (18:11)
[2024-06-27] MEDS ORDERED: Morphine 2 MG/ML VIAL ONE (18:11)
[2024-06-27] MEDS ORDERED: Ondansetron PF 4 MG/2 ML Vial ONE (18:19)
[2024-06-27 18:22] LABS: #Basophils 0.1 thou/uL (0.0-0.2); #Eosinphils 0.2 thou/uL (0.0-0.7); #Lymphocytes 3.6 thou/uL (1.20-3.40); #Monocytes 0.4 thou/uL (0.11-0.59); #Neutrophils 7.1 thou/uL (1.40-6.50); %Basophils 0.6 % (0.0-1.0); %Eosinophils 1.4 % (0.0-10.0); %Lymphocytes 31.4 % (21.0-51.0); %Monocytes 3.9 % (0.0-10.0); %Neutrophils 62.7 % (42.0-75.0); ALT (SGPT) 25 U/L (8-55); AST (SGOT) 17 U/L (5-34); Albumin 2.8 g/dL (3.5-5.0); Alkaline Phosphatase 60 U/L (40-110); Anion Gap 15 mmol/L (10-20); BUN (Urea Nitrogen) 11 mg/dL (7.0-18.7); Bilirubin, Total 0.2 mg/dL (0.2-1.2); Calc. Creatinine Clearance 0 mL/min (70-130); Carbon Dioxide 23 mmol/L (22-29); Chloride 104 mmol/L (98-107); Estimated GFR 92; Globulin 3.7 g/dL (2.4-3.5); Glucose 301 mg/dL (70-105); Hematocrit 51.8 % (36.0-47.0); Hemoglobin 17.2 g/dL (12.0-16.0); Mean Corpuscular HGB CONC 33.3 g/dL (32.0-36.0); Mean Corpuscular Volume 90.1 fl (78.0-98.0); Mean Platelet Volume 7.6 fL (7.4-10.4); Platelet Count 206 10x3/uL (130-400); Potassium 4.3 mmol/L (3.5-5.1); Protein, Total 6.5 g/dL (6.0-8.3); Red Blood Cell (RBC) Count 5.75 mill/uL (4.20-5.40); Sodium 138 mmol/L (136-145); White Blood Cell (WBC) Count 11.4 10x3/uL (4.8-10.8)
[2024-06-27 18:23] LABS: Troponin I Less than 0.010 ng/mL (< 0.028)
[2024-06-27 19:29] LABS: BHCG - Serum Negative (NEGATIVE); Pregs Control Background? CLEAR/WHITE (CLR/WHITE); Pregs Control Bar Appear? YES (CONTROL BAR)
== END 2024-06-27 20:12 | disposition home or self-care (01) ==
LOC: BURERS 17:29
DX: M94.0 Chondrocostal junction syndrome [Tietze] (principal); E11.9 Type 2 diabetes mellitus without complications; I10 Essential (primary) hypertension; J44.9 Chronic obstructive pulmonary disease, unspecified; F17.210 Nicotine dependence, cigarettes, uncomplicated
CPT/HCPCS: 36415; 71045; 71275; 80053; 83880; 84484; 84703; 85025; 93005; 96374; 96375; J2272; J2405; Q9967